=== PATIENT | female | born 1955 | race Caucasian/White ===

== ENCOUNTER 2016-12-12 16:23 | Emergency (ER) | payer OTHER ==
[2016-12-12 18:36] LABS: microscopic required? YES; urine erythrocyte NEGATIVE (NEGATIVE)
[2016-12-12 20:56] LABS: BASOPHIL % 0.1 % (0-2); PLATELET COUNT 171 x10^3mcL (130-400); RED CELL DISTRIBUTION WIDTH 13.4 % (11.5-14.5)
[2016-12-12 21:02] LABS: CALCIUM 9.7 mg/dL (8.5-10.1); CARBON DIOXIDE 25.8 mmol/L (21-32); POTASSIUM SERUM 3.8 mmol/L (3.5-5.1)
[2016-12-12 21:06] LABS: ALBUMIN 3.9 g/dL (3.4-5.0); BILIRUBIN TOTAL 0.4 mg/dL (0.20-1.00); TOTAL PROTEIN, SERUM 6.9 g/dL (6.4-8.2)
[2016-12-12 21:21] LABS: CK-MB < 0.5 ng/mL (0-3.6); CREATINE KINASE 17 U/L (26-192)
[2016-12-12 23:49] VITALS: BP 132/88
== END 2016-12-12 23:49 | disposition home or self-care (01) ==
LOC: ED 16:23
PROVIDERS: Emergency Medicine
DX: N39.0 Urinary tract infection, site not specified (principal); F99 Mental disorder, not otherwise specified; E78.00 Pure hypercholesterolemia, unspecified; Z00.8 Encounter for other general examination; Z13.9 Encounter for screening, unspecified; Z88.8 Allergy status to other drugs, medicaments and biological substances
CPT/HCPCS: 83880; J0696; Q0092

== ENCOUNTER 2016-12-29 17:12 | Emergency (ER) | payer OTHER ==
[~2016-12-29] VITALS: Ht 170.2 cm; Wt 68.0 kg
[2016-12-29 19:00] LABS: BASOPHIL % 0.3 % (0-2); CALCIUM 9.6 mg/dL (8.5-10.1); CARBON DIOXIDE 29.5 mmol/L (21-32); CHLORIDE SERUM 106 mmol/L (98-107); CREATININE SERUM 1.2 mg/dL (0.6-1.0); GFR1 48 mL/min; GLUCOSE SERUM 109 mg/dL (74-106); PLATELET COUNT 171 x10^3mcL (130-400); POTASSIUM SERUM 3.8 mmol/L (3.5-5.1); RED CELL DISTRIBUTION WIDTH 13.6 % (11.5-14.5); SODIUM SERUM 142 mmol/L (136-145)
[2016-12-29 19:05] LABS: ALBUMIN 3.9 g/dL (3.4-5.0); ALKALINE PHOSPHATASE 66 U/L (46-116); ALT/SGPT 28 U/L (14-59); AST/SGOT 17 U/L (15-37); BILIRUBIN TOTAL 0.3 mg/dL (0.20-1.00); TOTAL PROTEIN, SERUM 6.8 g/dL (6.4-8.2)
[2016-12-29 23:47] LABS: AMPHETAMINE QUAL UR NONE DETECTED (NEG <=1000)
[2016-12-30 11:58] VITALS: BP 137/99
== END 2016-12-30 12:30 ==
LOC: ED 17:12
PROVIDERS: Emergency Medicine
DX: F78 Other intellectual disabilities (principal); F99 Mental disorder, not otherwise specified; Z79.899 Other long term (current) drug therapy
CPT/HCPCS: 36415; G0480

== ENCOUNTER 2017-02-16 11:39 | Inpatient (IN) | payer OTHER ==
[~2017-02-16] VITALS: Ht 152.4 cm; Wt 57.0 kg
--- NOTE | 2017-02-16 12:03 | NUR ---
PT BIBA FOR MEDICAL CLEARANCE, PER MEDIC PT'S SISTER CALLED CCRT STS PT REFUSED TO TAKE MEDICATION AND SHOWER, AND EAT, DRINK WATER OR USE BATHROOM. PLACED PT ON CM, VSS. PT A/O X4. PT GIVEN CALL LIGHT. AWAITING DR SINGH. PT'S BELONGINGS TAKEN OUT OF HER ROOM.
--- NOTE | 2017-02-16 12:17 | NUR ---
PXRAY DONE AT BEDSIDE
[2017-02-16 12:49] LABS: BASOPHIL % 0.1 % (0-2); PLATELET COUNT 186 x10^3mcL (130-400); RED CELL DISTRIBUTION WIDTH 13.5 % (11.5-14.5)
[2017-02-16 12:50] LABS: CALCIUM 9.6 mg/dL (8.5-10.1); CARBON DIOXIDE 24.8 mmol/L (21-32); CHLORIDE SERUM 106 mmol/L (98-107); CREATININE SERUM 0.9 mg/dL (0.6-1.0); GFR1 > 60 mL/min; GLUCOSE SERUM 96 mg/dL (74-106); POTASSIUM SERUM 3.7 mmol/L (3.5-5.1); SODIUM SERUM 143 mmol/L (136-145)
[2017-02-16 13:03] LABS: ALKALINE PHOSPHATASE 64 U/L (46-116); ALT/SGPT 38 U/L (14-59); AMYLASE 37 U/L (25-115); AST/SGOT 27 U/L (15-37); BILIRUBIN TOTAL 0.5 mg/dL (0.20-1.00); CHOLESTEROL 154 mg/dL (<200); HDL CHOLESTEROL 64 mg/dL (40-60); LIPASE 92 IU/L (73-393); MAGNESIUM 1.7 mg/dL (1.8-2.4); T4(THYROXINE) 6.5 ug/dL (4.7-13.3); TOTAL PROTEIN, SERUM 7.1 g/dL (6.4-8.2)
--- NOTE | 2017-02-16 13:19 | NUR ---
CONTINUES TO MAKE PENTECOSTAL STATEMENTS INCLUDING THINKING RN IS KRISH. ABLE TO TOLERATE IV WITHOUR VERBAL OR PHYSICAL OUTBURST OR RESISTING INTERVENTION. BOLUS STARTED, REMAINS ON MONOTOR.
[2017-02-16 13:56] LABS: UA SPECIFIC GRAVITY >=1.030 (1.005-1.035); microscopic required? YES; urine erythrocyte NEGATIVE (NEGATIVE)
--- NOTE | 2017-02-16 13:59 | NUR ---
PT RESTING COMFORTABLY ON KWAKU JOHNS.
[2017-02-16 14:08] LABS: AMPHETAMINE QUAL UR NONE DETECTED (NEG <=1000)
--- NOTE | 2017-02-16 14:09 | NUR ---
SPOKE TO JACINTO,STS SHE IS CRIPPLED. PT HAD BLEEDING ULCER IN DECEMBER 2016, SUCRALFATE 10 MG BID ONE HOUR BEFORE MEALS,FENOFIBRATE 134 MG OD, VIT B12 OD, QUETIAPINE [id number] MG BID (ANXIETY), VIT D3 5,000 OD,PRAVASTATIN 10 MG OD, QUETIAPINE FUMARATE(SEROQUEL) 300 MG 2 TABS AT NIGHT, TEMAZEPAM 22.5 MG AT HS PRN JACINTO NO [phone]
--- NOTE | 2017-02-16 16:29 | NUR ---
CALLED JACINTO HORNE- [phone], SHE SAID PT HAD BREAKFAST AROUND 9AM , DONUT AND A CUP OF WATER. SPOKE TO KEELEY WU, STS THEY WANT TO KNOW IF PT HAS EATEN ANYTHING IN THE LAST [address] TREVIZO NOTIFIED. WILL CONTINUE TO MONITOR PT
[2017-02-16] MEDS ORDERED: FENOFIBRATE MI134 MG PO ×2 (17:40→17:41)
[2017-02-16] MEDS ORDERED: CARAFATE1 GM PO (17:41)
[2017-02-16] MEDS ORDERED: SEROQUEL25 MG PO (17:42)
[2017-02-16] MEDS ORDERED: PRAVASTATIN SOD10 M1 PO (17:42)
[2017-02-16] MEDS ORDERED: SEROQUEL300 MG PO (17:43)
[2017-02-16] MEDS ORDERED: RESTORIL15 MG (17:44)
--- NOTE | 2017-02-16 17:49 | NUR ---
MRSA SPECIMEN TAKEN AND SENT TO THE LAB
--- NOTE | 2017-02-16 18:29 | NUR ---
REPORT GIVEN TO KIAN
--- NOTE | 2017-02-16 18:30 | NUR ---
REC'D PT FROM ER VIA ALONSO. PT IS ON 5150 HOLD FOR GRAVELY DISABLED. HX OF SCHIZOPHRENIA. ALERT TO SELF. TELE #44 SR. DENIES PAIN OR DISCOMFORT. LUNG SOUNDS CLEAR. NO SOB NOTED. IV NOTED TO RAC. INTACT AND PATENT. BED IN LOWEST POSITION. CALL LIGHT WITHIN REACH. SITTER AT BEDSIDE. WILL ENDORSE TO PRIMARY RN.
[2017-02-16 19:03] VITALS: BP 146/92
--- NOTE | 2017-02-16 20:27 | NUR ---
AWAKE AND RESPONSIVE TO STIMULI. SKIN WARM AND DRY TO TOUCH. RESPIRATIONE VENA ND UNLABORED. NO S/S OF PAIN/DISCOMFORT. 1:1 SITTER AT BEDSIDE , GRAVELY DISABLED ON 5150. WILL CONTINUE TO MONITOR.
[2017-02-16 20:42] VITALS: BP 135/87
--- NOTE | 2017-02-17 02:50 | NUR ---
PT APPARENTLY ANXIOUS AND RESTLESS AT THIS TIME. DR GALLARDO MADE AWARE WITH NEW ORDER AND CARRIED OUT. ATIVEN 1MG PO ORDERED AND WELL TOLERATED. STARTED ON ROCEPHIN IGM IVPB FOR MANAGEMENT OF UTI ORDERED. WILL CONTINUE TO MONITOR.
[2017-02-17 06:37] VITALS: BP 133/92
[2017-02-17 06:49] LABS: CHOLESTEROL/HDL RATIO 2.6
--- NOTE | 2017-02-17 06:58 | NUR ---
STILL WITH ON AND OFF ANXIETY AND RESTLESSNESS.CONTINUE TO DO FREQUENT VISUAL CHECKS FOR SAFETY. KEPT CLEAN AND DRY. NO ADVERSE REACTION NOTED FROM ATB THERAPY. ALL NEEDS ATTENDED.
--- NOTE | 2017-02-17 08:09 | NUR ---
PT RECEIVED DURING CHANGE OF SHIFT A/OX1, ORIENTED TO SELF, TELE 44, NSR, PULSES PRESENT, NO EDEMA NOTED, LUNGS CTA ON RA, BREATHING EVEN AND UNLABORED, REPORTS PT REFUSED TO EAT, BOWEL SOUNDS ACTIVE, ABLE TO VOID, AMBULATORY, SKIN WARM DRY INTACT, NO INDICATION OF PAIN, IV TO RAC INFUSING NS, IV WNL, WITHDRAWN, ANSWERS "I DON'T WANT TO TALK ABOUT IT", CALL LIGHT WITHIN REACH, FLOOR COVERINGS INSTALLER AT BEDSIDE, CALL LIGHT WITHIN REACH, WILL CONTINUE TO MONITOR.
--- NOTE | 2017-02-17 08:27 | NUR ---
DR. FRANKEL AND RESIDENTS MAKING ROUNDS, PLAN OF CARE DISCUSSED.
--- NOTE | 2017-02-17 09:06 | NUR ---
PT DENIES SOB, DENIES PAIN, MEDS GIVEN, PT REPEATING "ARE YOU GOING TO GIVE ME MEDICATIONS.", CALL LIGHT WITHIN REACH, ASSISTANT IMPORT MANAGER AT BEDSIDE, WILL CONTINUE TO MONITOR.
--- NOTE | 2017-02-17 10:03 | NUR ---
PT ASLEEP, NO INDICATION OF PAIN, BREATHING EVEN AND UNLABORED, CALL LIGHT WITHIN REACH, SAMPLE PATTERNMAKER AT BEDSIDE, CALL LIGHT WITHIN REACH, WILL CONTINUE TO MONITOR.
--- NOTE | 2017-02-17 11:12 | NUR ---
PT ASLEEP BUT AROUSABLE, BREATHING EVEN AND UNLABORED, NO INDICATION OF PAIN, HOST/HOSTESS GROUND AT BEDSIDE, CALL LIGHT WITHIN REACH, WILL CONTINUE TO MONITOR.
--- NOTE | 2017-02-17 12:08 | NUR ---
PT ASLEEP, NO INDICATION OF PAIN, BREATHING EVEN AND UNLABORED, CALL LIGHT WITHIN REACH, WILL CONTINUE TO MONITOR.
[2017-02-17 12:40] VITALS: BP 121/89
--- NOTE | 2017-02-17 13:03 | NUR ---
PT REFUSING TO EAT, ENCOURAGED TO EAT BY RN AND OBSTETRICAL ANESTHESIOLOGIST, STATES "GOD TOLD ME NOT TO", CALL LIGHT WITHIN REACH, OBSTETRICAL ANESTHESIOLOGIST AT BEDSIDE, WILL CONTINUE TO MONITOR.
--- NOTE | 2017-02-17 13:55 | NUR ---
PT RESTING, NO INDICATION OF PAIN, BREATHING EVEN AND UNLABORED, BALE SEWER REPORTS PT DRANK ABOUT HALF OF THE BOOST WHEN ENCOURAGED BY DIETITION, CALL LIGHT WITHIN REACH, BALE SEWER AT BEDSIDE, WILL CONTINUE TO MONITOR.
--- NOTE | 2017-02-17 14:10 | NUR ---
PT RESTING IN BED, BREATHING EVEN AND UNLABORED, CALL LIGHT WITHIN REACH, WILL CONTINUE TO MONITOR.
--- NOTE | 2017-02-17 15:25 | NUR ---
PT RESTING IN BED, NO INDICATION OF PAIN, BREATHING EVEN AND UNLABORED, CALL LIGHT WITHIN REACH, HSE ADVISOR AT BEDSIDE, HSE ADVISOR STATED PT DRANK MORE OF THE BOOST.
--- NOTE | 2017-02-17 16:16 | NUR ---
Initial Nutrition Assessment Dx: Gravely Disabled 5150 PMHx: Schizophrenia, HLD PSHx: None Labs: BG 96, Mg 1.7L, A1C 6 Meds: Provachol, Tricor, NS IV, Carafate, Colace, Lactinex, Zofran, Diet: Low Sodium PO Intake: (02/17) B: pt refused, L: pt refused Ht: 60in Wt: 126lb BMI: 24.6kg/m2 (Normal) IBW: 100lb %IBW: 126% UBW: unable to obtain Age: 62 y/o F Food Allergies: None Skin: Intact. Brandon 19 Edema: None GI: Bowel sounds active. Last BM-none since admission (02/16) Nursing Trigger: Appears underweight/malnourished Pt admitted with metabolic encephalopathy secondary to UTI, pt lives with sister, pt had not taken medications and has psych evaluation pending with Dr. Ignacio per H&P notes. Per systems assessment (02/16) pt has a history of schizophrenia, alert to self only, pt is confused, and not eating, has COUNTER TACKER by bedside. video production intern visited pt who was lying in bed, alert but with altered mental status, claiming she wanted to see God, and selectively answering public health internship's and COUNTER TACKER's questions. COUNTER TACKER stated pt has refused to eat (02/17), pt took 2-3 sips of oral supplement Boost during public health internship's visit. Nursing Program Chair noticed moderate fat and muscle depletion in face and bilateral upper extremities, unable to conduct further visual assessment due to pt being covered with blankets, per physician note (02/16) general exam: pt well developed, well nourished, appears dehydrated. No family members present in room to participate in verbal interview with design intern. Problems with: N: No V: No D: No C: No Problems with: Chewing: Yes, missing upper and lower teeth, pt states dentures at home do not fit well, does not use them. Swallowing: No Current Appetite: Poor Recent wt change: Unable to obtain due to pt altered mental status. Vitamin/Supplement use: Unable to obtain due to pt answering selective questions. Diet at home: Per pt has oatmeal and mashed potato at home Physical activity: Unable to obtain due to pt altered mental status. Education: Not appropriate at this time. Estimated Nutritional Needs Based on: Actual body weight 126lb, 57kg Energy: 1425-1710kcal/d (kcal/kg 25-30 for Maintenance) Protein: 57-68g/d (1-1.2g/kg for Geriatric Maintenance) Fluid: 1425-1710ml/d (1ml/kcal) or per doctor Nutrition Diagnosis: Inadequate energy intake related to altered mental status as evidenced by pt refusing to eat x2 days. Intervention: 1. Recommend liberalize to regular diet, mechanical soft, chopped. No further restrictions warranted at this time to encourage PO intake. 2. Recommend Boost Plus TID with meals. Monitor/ Evaluate: Goal: PO intake and oral supplements to meet at least 75% of estimated needs Monitor: PO intake, Labs (TAG, Chol), GI function F/U in (3-5 days) as MODERATE risk (02/20-02/22)
--- NOTE | 2017-02-17 16:21 | NUR ---
PT RESTING, NO INDICATION OF PAIN, BREATHING EVEN AND UNLABORED, CALL LIGHT WITHIN REACH, NAILING MACHINE OPERATOR AUTOMATIC AT BEDSIDE, WILL CONTINUE TO MONITOR.
--- NOTE | 2017-02-17 17:08 | NUR ---
PT RESTING, NO INDICATION OF PAIN, BREATHING EVEN AND UNLABORED, CALL LIGHT WITHIN REACH, WILL CONTINUE TO MONITOR.
[2017-02-17 17:39] VITALS: BP 140/91
--- NOTE | 2017-02-17 18:18 | NUR ---
PT RESTING IN BED, NO INDICATION OF PAIN, BREATHING EVEN AND UNLABORED, TREASURY MANAGER STATES PT FINISHED 240ML OF WATER WITH A PIECE OF CAKE AND FINISHED THE BOOST, TREASURY MANAGER ALSO STATES PT HAS NOT GONE TO RESTROOM EVEN AFTER ENCOURAGEMENT TO DO SO, CALL LIGHT WITHIN REACH, TREASURY MANAGER AT BEDSIDE, WILL ENDORSE PT TO NEXT SHIFT.
--- NOTE | 2017-02-17 19:51 | NUR ---
PT CURRENTLY RESTING IN BED, NO ACUTE DISTRESS. A/O X1, ORIENTED TO SELF ONLY, CONFUSED. TELE #44 SHOWING SINUS TACHYCARDIA, DENIES CHEST PAIN. PULSES PALPABLE IN ALL EXTREMITIES, NO EDEMA NOTED. LUNG SOUNDS CTA BILATERALLY. BOWEL SOUNDS ACTIVE. PT ABLE TO VOID, HOWEVER REFUSING. AMBULATORY. SKIN INTACT. DENIES PAIN AT THIS TIME. IV PATENT AND INTACT. BED IN LOWEST POSITION, SIDE RAILS UP X2, CALL LIGHT WITHIN REACH. WILL CONTINUE TO MONITOR.
[2017-02-17 21:33] VITALS: BP 138/87
--- NOTE | 2017-02-18 08:00 | NUR ---
PATIENT AAOX1, REORIENTED TO TIME AND PLACE, NO DISTRESS NOTED, RESPIRATIONS EVEN AND UNLABORED, TELE # [address] AND DENIES CHEST PAIN, DENIES N/V/D. PATIENT EATING BREAKFAST AND ATE 25% OF BREAKFAST ENCOURAGE TO EAT MORE BUT PATINET REFUSED AND WILL CONTINUE TO ENCOURAGE TO EAT. CALL LIGHT AND BELONGINGS WITHIN REACH, FALL PRECAUTIONS IN PLACE, AND WILL CONTINUE TO MONITOR.
[2017-02-18 08:55] LABS: BASOPHIL % 0.3 % (0-2); CARBON DIOXIDE 25.6 mmol/L (21-32); CHLORIDE SERUM 107 mmol/L (98-107); CREATININE SERUM 0.6 mg/dL (0.6-1.0); GFR1 > 60 mL/min; MAGNESIUM 1.8 mg/dL (1.8-2.4); PHOSPHOROUS 2.8 mg/dL (2.5-4.9); PLATELET COUNT 171 x10^3mcL (130-400); POTASSIUM SERUM 3.7 mmol/L (3.5-5.1); RED CELL DISTRIBUTION WIDTH 13.5 % (11.5-14.5); SODIUM SERUM 140 mmol/L (136-145)
[2017-02-18 10:59] LABS: GLUCOSE SERUM 131 mg/dL (74-106)
[2017-02-18 11:00] VITALS: BP 144/89
--- NOTE | 2017-02-18 13:05 | NUR ---
BED BATH WAS GIVEN, BUT WHEN REPOSITIONING IV WAS D/C TO RAC WITH CANNULA INTACT, IV STARTED TO RFA 22G AND TOLERATED WELL, CALL LIGHT WITHIN REACH, FALL PRECAUTIONS IN PLACE, AND WILL CONTINUE TO MONITOR.
[2017-02-18 14:00] VITALS: BP 135/87
--- NOTE | 2017-02-18 17:00 | NUR ---
ASSISTED PATIENT OUT OF BED TO RESTROOM, PATIENT AMBULATED TO RESTROOM WITH STEADY GAIT, AND VOIDED, NO DISTRESS NOTED, RESPIRATIONS EVEN AND UNLABORED, PATIENT BACK IN BED AND WILL CONTINUE TO MONITOR.
[2017-02-18 17:11] VITALS: BP 139/93
--- NOTE | 2017-02-18 17:58 | NUR ---
AT BEDSIDE ASSESSING PATIENT WILL CONTINUE TO MONITOR.
--- NOTE | 2017-02-18 18:10 | NUR ---
PATIENT ATE 75% OF DINNER AND WILL CONTINUE TO MONITOR.
--- NOTE | 2017-02-18 18:49 | NUR ---
PATIENT SITTING UP IN BED AAOX1, REORIENTED TO TIME AND PLACE, NO DISTRESS NOTED, RESPIRAITONS EVEN AND UNLABORED, IV TO RFA CDI AND INFUSING NS AT 100ML/HR WITH NO S/S OF INFILTRATION, CALL LIGHT AND BELONGINGS WITHIN REACH, FALL PRECAUTIONS IN PLACE, AND WILL ENDORSE TO NIGHT NURSE.
--- NOTE | 2017-02-18 20:01 | NUR ---
PT CURRENTLY RESTING IN BED, NO ACUTE DISTRESS. A/O X1, CONFUSED, HX OF SCHIZOPHRENIA. TELE # 44 SHOWING SINUS RHYTHM, DENIES CHEST PAIN. PULSES PALPABLE IN ALL EXTREMITIES, NO EDEMA NOTED. LUNG SOUNDS CTA BILATERALLY. BOWEL SOUNDS ACTIVE. VOIDING WELL. MILD GENERALIZED WEAKNESS NOTED. SKIN INTACT. DENIES PAIN AT THIS TIME. IV PATENT AND INTACT. BED IN LOWEST POSITION, SIDE RAILS UP X2, SCDS IN PLACE, CALL LIGHT WITHIN REACH. WILL CONTINUE TO MONITOR.
[2017-02-18 21:12] VITALS: BP 140/83
--- NOTE | 2017-02-19 01:30 | NUR ---
PT CURRENTLY RESTING IN BED, NO ACUTE DISTRESS. WILL CONTINUE TO MONITOR.
--- NOTE | 2017-02-19 05:54 | NUR ---
PT PULLED OUT IV IN RFA, NEW IV STARTED IN LFA. PT TOLERATED PROCEDURE WELL. WILL CONTINUE TO MONITOR.
--- NOTE | 2017-02-19 05:56 | NUR ---
PT SLEPT PERIODICALLY THROUGHOUT NIGHT, NO ACUTE DISTRESS. ALL NEEDS MET AND ATTENDED TO. NO SIGNIFICANT CHANGES. IV PATENT AND INTACT. BED IN LOWEST POSITION, SIDE RAILS UP X2, SCDS IN PLACE, CALL LIGHT WITHIN REACH. WILL ENDORSE CARE TO ONCOMING NURSE.
[2017-02-19 06:06] LABS: BASOPHIL % 0.2 % (0-2); PLATELET COUNT 171 x10^3mcL (130-400)
[2017-02-19 06:26] LABS: CARBON DIOXIDE 22.2 mmol/L (21-32); CHLORIDE SERUM 108 mmol/L (98-107); CREATININE SERUM 0.7 mg/dL (0.6-1.0); GFR1 > 60 mL/min; GLUCOSE SERUM 137 mg/dL (74-106); MAGNESIUM 1.6 mg/dL (1.8-2.4); PHOSPHOROUS 2.7 mg/dL (2.5-4.9); POTASSIUM SERUM 3.5 mmol/L (3.5-5.1); SODIUM SERUM 139 mmol/L (136-145)
--- NOTE | 2017-02-19 07:36 | NUR ---
RECEIVED PT LAYING IN BED. NO APPARENT SIGNS OF ACUTE DISTRESS NOTED AT THIS TIME. DENIES PAIN. PT APPEARS TO HAVE FLAT AFFECT. VERY MONOTONE WITH RESPONSE, WITH BLANK STARE. SITTER AT BEDSIDE. CALL LIGHT WITHIN REACH. ENVIRONMENTAL SAFETY CHECK OF ROOM DONE. BED IN LOWEST POSITION. IV TO LFA INFUSING WELL WILL CONTINUE TO MONITOR FOR SAFETY
[2017-02-19 10:08] VITALS: BP 138/93
--- NOTE | 2017-02-19 11:14 | NUR ---
PT RTIS, RELIGIOUSLY PREOCCUPIED, STATING THAT GOD WON'T FORGIVE HER IF SHE TAKES MEDICATION OR IF SHE EATS. REORIENTED PT TO PERSON PLACE TIME AND SITUATION. REQUESTED CAITLIN TO TALK TO PT. CURRENTLY AT BEDSIDE. SPOKE TO PT'S SISTER ON THE PHONE. PROVIDED PT WITH PERICARE AND BED BATH BECAUSE SHE IS MALODOROUS. RETRIEVED STRONGER JAMES FROM EDUCATION DEPT. SITTER AT BEDSIDE. CALL LIGHT WITHIN REACH. ENVIRONMENTAL CHECK OF ROOM PERFORMED. WILL CONTINUE TO MONITOR
--- NOTE | 2017-02-19 11:56 | NUR ---
PT APPEARS VERY AGGITATED AND ANXIOUS, REPEATING SELF AND YELLING "GOD WON'T FORGIVE ME IF YOU BRING THE CAT" OVER AND OVER. CAUSING ROOMMATE DISTRESS AND ANXIETY. SPOKE TO DR. SIM. WILL LOOK INTO POSSIBLE STAT PRN. WILL CONTINUE TO MONITOR
--- NOTE | 2017-02-19 12:03 | NUR ---
ATIVAN PO PRN ORDERED AND ADMINISTERED. SITTER AT BED SIDE. WILL CONTINUE TO MONITOR
--- NOTE | 2017-02-19 13:35 | NUR ---
PT APPEARS LESS ANXIOUS AND AGITATED. AT TIMES STILL REPEATING PHRASES IN REGARDS TO GOD AND CATS. CONTINUE TO REORIENT PT TO PERSON PLACE TIME AND SITUATION. SITTER AT BEDSIDE. WILL CONTINUE TO MONITOR
[2017-02-19 13:57] VITALS: BP 131/96
--- NOTE | 2017-02-19 23:00 | NUR ---
PT PULLED OUT IV ACCESS AT THE LFA WITH SLIGHT BLEEDING NOTED. PRESSURE DRESSING APPLIED. NEW IV ACCESS STARTED AT THE LFA USING G#22 WITH GOOD BLOOD FLOW RETURN ON FIRST ATTEMPT . PATIENT TOLERATED PROCEDURE WELL.
--- NOTE | 2017-02-20 00:22 | NUR ---
PT VERY ANXIOUS, ATIVAN 1MG PO PRN MEDICATION. TURNED AND REPOSITIONED FOR COMFORT. ORAL FLUIDS OFFERED AND WELL TOLERATED.
--- NOTE | 2017-02-20 01:37 | NUR ---
PATIENT STILL VERY ANXIOUS, ATIVAN NOT EFFECTIVE, PT C/O SEVERE GENERALIZED BODY PAIN/THROBBIBG ON SCALE 8/10, MORPHINE 2MG GIVEN IVP PRN MEDICATION. WILL CONTINUE TO MONITOR.
--- NOTE | 2017-02-20 04:27 | NUR ---
PT CLAIMED PAIN MEDICATION IS NOT A TOTAL RELIEF, PAIN LEVEL AT THIS TIME 5/10, OFFERED PAIN MEDICATION FOR MODERATE PAIN. BUT REFUSED. WILL CONTINUE TO MONITOR.
[2017-02-20 04:38] VITALS: BP 116/79
--- NOTE | 2017-02-20 06:27 | NUR ---
NO ADVERSE REACTIOBN NOTED FROMA TB THERAPY. ASSISTED TO BATHROOM FOR BLADDER FUCNTION. GOOD PERICARE RENDERED. KEPT CLEAN AND DRY. ALL NEEDS ATTENDED.
--- NOTE | 2017-02-20 07:28 | NUR ---
RECEIVED PATIENT ALERT AWAKE ORIENTED 1, NO COMPLAINT OF PAIN OR SOB, IV SITE RIGHT ARM WRAPPED AND INTACT, SKIN INTACT, SITTER AT BEDSIDE PATIENT LYING SUPINE BED IN LOW POSITION CALL LIGHT IN APLCE SIDE RAILS UP
[2017-02-20 08:34] VITALS: BP 137/92
[2017-02-20 10:34] LABS: BASOPHIL % 0.3 % (0-2); PLATELET COUNT 164 x10^3mcL (130-400); RED CELL DISTRIBUTION WIDTH 13.6 % (11.5-14.5)
[2017-02-20 10:55] LABS: CALCIUM 9.1 mg/dL (8.5-10.1); CARBON DIOXIDE 25.6 mmol/L (21-32); CHLORIDE SERUM 111 mmol/L (98-107); CREATININE SERUM 0.7 mg/dL (0.6-1.0); GFR1 > 60 mL/min; GLUCOSE SERUM 130 mg/dL (74-106); MAGNESIUM 1.5 mg/dL (1.8-2.4); PHOSPHOROUS 3.7 mg/dL (2.5-4.9); POTASSIUM SERUM 3.8 mmol/L (3.5-5.1); SODIUM SERUM 144 mmol/L (136-145)
--- NOTE | 2017-02-20 11:17 | NUR ---
PATIENT ALERT AWAKE SINGING CONFUSED NO SIGN OF DISTRESS OR SOB NO PAIN VERBALIZED, RECEIVING ULTRASOUND BILATERAL LOWER ETREMITIES, PATIENT LYING IN BED SUPINE BED IN LOW POSITION CALL LIGHT IN PALCE SIDE RAILS UP
--- NOTE | 2017-02-20 11:28 | NUR ---
SPOKE WITH DR OROZCO ABOUT MG 1.5 STATED SHE WILL ORDER MG DEEDEE
[2017-02-20 13:21] VITALS: BP 139/93
--- NOTE | 2017-02-20 16:10 | NUR ---
PATIENT ALERT AWAKE AMBULATED ENCINO WITH SITTER NO COMPLICATIONS SITTING AT BEDSIDE READING BIBLE WITH SITTER AT BEDSIDE, NO COMPLAINT OF APIN RO SOB, BS 110 NO COVERAGE, IV FLUID RUNNING SITTER AT BEDSIDE BED IN LOW POSITION CALL LIGHT IN PLACE SIDE RAILS UP
--- NOTE | 2017-02-20 16:44 | NUR ---
PT ON BED, AWAKE, ALERT, AND ORIENTED X2. HAS NO COMPLAINT OF PAIN, SOB, OR DIZZINESS. RESPONDS WELL TO QUESTION AND ANSWER. SIDE RAILS UP, CALL LIGHT WITHIN REACH, WILL CONTINUE TO MONITOR
[2017-02-20 18:20] VITALS: BP 136/92
--- NOTE | 2017-02-20 20:04 | NUR ---
AWAKE BUT CONFUSED AND DISORIENTED. VERY AGITATED AND RESTLESS AT THE START OF THE SHIFT. ALLOWED PATIENT TO VERBALIZE FEELINGS. SITTER AT BEDSIDE. IVF NS INFUSING WELL VIA PERIPHERAL LINE AT THE RIGHT FOREARM TOLERATING WELL. WILL CONTINUE TO MONITOR.
[2017-02-20 21:00] VITALS: BP 128/84
--- NOTE | 2017-02-21 00:10 | NUR ---
ASSITED TO BVATHROOM FOR BLADDER FUNCTION. GOOD PERICARE RENDERED. KEPT CLEAN AND DRY.
--- NOTE | 2017-02-21 03:15 | NUR ---
C/O SEVERE BACK PAIN, MORPHINE 2MG IVP PRN MEDICATION. MORPHINE 2MG IVP PRN MEDICATION. WILL CONTINUE TO MONITOR.
--- NOTE | 2017-02-21 05:32 | NUR ---
CONTINUES LARON TB IVPB FOR MAAGEMENT OF UTI WITHOUT ADVERSE REACTION NOTED. TOELRATED ORAL FLUIDS, NO S/S OF ASPIRATION NOTED. KEPT CLEAN AND DRY. ALL NEEDS ATTENDED.
[2017-02-21 05:55] VITALS: BP 131/81
[2017-02-21 06:10] LABS: CALCIUM 8.9 mg/dL (8.5-10.1); CARBON DIOXIDE 20.7 mmol/L (21-32); CHLORIDE SERUM 110 mmol/L (98-107); CREATININE SERUM 0.6 mg/dL (0.6-1.0); GFR1 > 60 mL/min; GLUCOSE SERUM 106 mg/dL (74-106); MAGNESIUM 2.1 mg/dL (1.8-2.4); SODIUM SERUM 141 mmol/L (136-145)
[2017-02-21 07:03] LABS: BASOPHIL % 0.1 % (0-2); PLATELET COUNT 159 x10^3mcL (130-400); RED CELL DISTRIBUTION WIDTH 13.9 % (11.5-14.5)
--- NOTE | 2017-02-21 09:00 | NUR ---
PT ON BED, AWAKE, ALERT, AND ORIENTED X2. HAS NO COMPLAINT OF PAIN, SOB, OR DIZZINESS. RESPONDS WELL TO QUESTION AND ANSWER. CLEAR EDVIN LUNG FIELD, SYMMETRICAL CHEST EXPANSION AND UNLABORED. SIDE RAILS UP, CALL LIGHT WTIHIN REACH, WILL CONTINUE TO MONITOR
--- NOTE | 2017-02-21 14:02 | NUR ---
PT ON BED, AWAKE, ALERT, AND ORIENTED X2. PT IS READING HER BIBLE. NO FACIAL GRIMACE, NO DISTRESS NOTED
--- NOTE | 2017-02-21 18:08 | NUR ---
PT ON BED, AWAKE, ALERT, AND ORIENTED. HAS NO COMPLAINT OF PAIN, SOB, OR DIZZINESS. RESPONDS WELL TO QUESTION AND ANSWER. SIDE RAILS UP, CALL LIGHT WITHIN REACH, WILL CONTINUE TO MONITOR
[2017-02-21 18:15] VITALS: BP 134/90
--- NOTE | 2017-02-21 19:55 | NUR ---
AWAKE IN BED , APPARENTLY APPREHENSIVE AND WITHDRAWN. RESPIRATIONE LENO AND OUNLABORED. DENIES ANY PAIN/DIOSCOMFORT AT THIS TIME. PLACED CALL LIGHT WITHIN REACH, INSTRUCTED TO CALL FOR ANY ASSSITANCE BEEDED. WILL CONTINUE TO MONITOR.
--- NOTE | 2017-02-22 00:01 | NUR ---
CALM AT THIS TIME. DENIES ANY PAIN/DISCOMFORT. ORAL FLUIDS WELL TOLERATED. NO S/S OF ASPIRATION. WILL CONTINUE TO MONITOR.
--- NOTE | 2017-02-22 05:30 | NUR ---
ASSSITED TO BATHROOM FOR PERSONAL NEEDS. GOOD PERICARE RENDERED. KEPT CLEAN AND RY. BLOOD AUGAR TAKEN 101MG/DL. NO S/S OF GALYCEMIC REACTION. TOELRATED ORAL FLUIDS. NO S/S OF ASPIRATION NOTED.
[2017-02-22 06:35] LABS: CALCIUM 9.5 mg/dL (8.5-10.1); CHLORIDE SERUM 109 mmol/L (98-107); CREATININE SERUM 0.6 mg/dL (0.6-1.0); GFR1 > 60 mL/min; GLUCOSE SERUM 104 mg/dL (74-106); POTASSIUM SERUM 3.9 mmol/L (3.5-5.1); SODIUM SERUM 140 mmol/L (136-145)
[2017-02-22 06:36] LABS: BASOPHIL % 0.3 % (0-2); PLATELET COUNT 186 x10^3mcL (130-400); RED CELL DISTRIBUTION WIDTH 13.6 % (11.5-14.5)
--- NOTE | 2017-02-22 07:35 | NUR ---
RECEIVED PT SITTING UP IN BED AWAKE AND ALERT, READING THE BIBLE. DENIES PAIN AT THIS TIME. PLEASANT WHEN ENGAGED. IV TO RFA APPEARS PATENT AND INFUSING WELLTO KVO. RESPIRATIONS EVEN AND UNLABORED. CALL LIGHT WITHIN REACH. SITTER AT BEDSIDE. WILL CONTINUE TO MONITOR FOR SAFETY
[2017-02-22 08:16] VITALS: BP 138/91
[2017-02-22 08:47] VITALS: BP 133/96
--- NOTE | 2017-02-22 10:36 | NUR ---
PT RESTING CALM AND QUIETLY SITTING UP IN BED, READING THE BIBLE. PT WAS OFFERED GLUCOSE CONTROL DIETARY SUPPLEMENT SHAKE. PT DRANK IT ALL. COMPLAINT WITH MEDICATION.
--- NOTE | 2017-02-22 11:19 | NUR ---
Follow Up Nutrition Assessment Dx: Gravely Disabled, 5150 PMHx: Schizophrenia, HLD Labs: BG 104; (02/16) A1C 6 Meds: Colace, D50, humulin R, lactinex, NS IV, vitamin B12, vitamin D, zofran Current Diet Order: CCHO-60 gm PO Intakes: (02/20) B: 0% (Refused), L: 0% (Refused), D: 85%; (02/21) B: 0% (100% Boost), L: 75%, D: 75% Weights: (02/17) 126 lb, 57 kg Skin: Intact. Brandon 19. Edema: None GI: Bowel sounds active. Last BM 02/21. Current Appetite: Fair to Good (Fluctuates) Problem with: N: None. V: None. D: None. C: None. Problems with: Chewing: Yes. Missing upper and lower teeth, dentures at home, does not fit well, does not use them. Per doctor's progress note 02/21, no acute events overnight, no evidence of arterial stenosis and DVT; Pt with metabolic encephalopathy secondary to UTI, 6-10 WBC with moderate bacteria, history of schizophrenia, on 5150 for grave disability, pending psych facility placement. Pt appeared confused, awake during RD visit. Boost Glucose Control x2 (Vanilla, [place]) at bedside, untouched. Sitter at bedside. Sitter reported that pt ate well this morning, only eats foods on the plate, nothing else outside of the plate. Sitter also stated that pt likes Boost Chocolate flavor only and will drink the Boost if given. Sitter also stated that pt does not have teeth, will fair better with softer textured foods. Estimated Nutritional Needs Based on Actual BW 126 lb, 57 kg. Energy: 7833-3314 kcal/day (25-30 kcal/kg for Maintenance) Protein: 57-68 gm/day (1-1.2 gm/kg for Maintenance) Fluids: 5631-1670 ml/day (1ml/kcal for Maintenance) or per doctor Nutrition Diagnosis 1. Inadequate energy intake related to altered mental status as evidenced by pt refusing to eat x2 days -- *Resolved 2. Difficulty chewing related to missing dentition as evidenced by pt with no teeth, dentures do not fit well Intervention 1. Recommend Mechanical, Soft Chopped diet. No restrictions warranted due to pt not diabetic, PO intakes fluctuates. 2. Recommend Boost Plus BID (Chocolate) (720 kcal, 28 gm protein) to aid in fluctuating PO intakes. 3. Consider D/C Humulin R. Noted pt is not diabetic, A1C 6%. Monitor/ Evaluate Previous Goal: PO intakes and oral supplements to meet at least 75% of estimated needs - Met partially Goal: PO intakes to meet >75% of estimated needs Monitor: PO intakes, labs, GI function F/U in 7 days as LOW risk (03/01)
[2017-02-22 13:41] VITALS: BP 153/89
--- NOTE | 2017-02-22 14:09 | NUR ---
PT RESTING IN BED READING HER BIBLE. DENIES PAIN OR DISCOMFORT AT THIS TIME. DID NOT EAT LUNCH, BUT AT THE GLUCOSE CONTROL SUPPLEMENT. WILL CONTINUE TO ENCOURAGE PT TO EAT AND WILL OFFER ADDITIONAL SNACK PERIODICALLY THROUGH THE DAY IN BETWEEN MEALS. IV INFUSING WELL. CALL LIGHT WITHIN REACH. WILL CONTINUE TO MONITOR
--- NOTE | 2017-02-22 14:20 | NUR ---
P.T. NOTES RECEVIED P.T. MEGAN SALTER REVIEWED, SITTER PRESENT AT BEDSIDE. PT FOUND AWAKE, IN LONG SITTING POSITION READING HER BIBLE. PT WAS RESPONISVE TO P.T. BUT WHEN ASKED IF SHE WANTS TO PARTICIPATE WITH P.T. PT RESPONDED "NOT NOW, I WANT TO READ MY BIBLE." PER SITTER PT WALKS TO THE BATHROOM WITH NO ASSIST ONLY SUPERVISION. WILL ATTEMPT TO SEE PT AT A LATER TIME. BASED ON SCREENING PT IS MORE LIMTIED BY HER COGNIION VERSUS MUSCULOSKELETAL IMPAIRMENT. PVE X1
[2017-02-22 16:42] VITALS: BP 129/84
--- NOTE | 2017-02-22 18:06 | NUR ---
PT SITTING UP IN BED. PT DID NOT LIKE HER DINNER, STATING IT WAS TOO SPICY. ANOTHER TRAY WAS ORDERED. PT DID DRINK GLUCOSE CONTROL MILK SHAKE. SITTER AT BEDS SIDE TO ASSIST. CALL LIGHT WITHIN REACH. WILL CONTINUE TO MONITOR
--- NOTE | 2017-02-22 20:27 | NUR ---
RECEIVED PT IN BED AAOX2, PT DENY PAIN/DISCONFORT AT THE MOMENT , LUNG SOUNDS CTA , PIV TO RIGHT ARM INTACT INFUSING WELL , BED ALARM ON FOR SAFETY, WILL CON'T TO MONITOR AND ASSIST PT WITH CARE .
--- NOTE | 2017-02-22 20:30 | NUR ---
PATIENT'S PLAN OF CARE WAS DISCUSSED AND REVIEWED WITH LUNCHROOM MOTHER: PETEY BARCLAY I HAVE REVIEWED THE DATA COLLECTION BY LUNCHROOM MOTHER (NAME): PETEY BARCLAY ENTERED ON (DATE/TIME): 02/22/172026 I CONCUR WITH THE DATA AND ANY EXCEPTIONS OR COMMENTS ARE LISTED BELOW: AGREE WITH ASSESSMENTS.
[2017-02-22 21:54] VITALS: BP 136/97
--- NOTE | 2017-02-23 03:10 | NUR ---
PT;S IN BED WITH EYES CLOSED , PIV INTACT INFUSING WELL .
[2017-02-23 05:21] VITALS: BP 122/83
[2017-02-23 06:07] LABS: PLATELET COUNT 200 x10^3mcL (130-400); RED CELL DISTRIBUTION WIDTH 13.8 % (11.5-14.5)
[2017-02-23 06:18] LABS: CALCIUM 10.4 mg/dL (8.5-10.1); CHLORIDE SERUM 107 mmol/L (98-107); CREATININE SERUM 0.8 mg/dL (0.6-1.0); GFR1 > 60 mL/min; GLUCOSE SERUM 137 mg/dL (74-106); SODIUM SERUM 141 mmol/L (136-145)
[2017-02-23 06:34] LABS: BASOPHIL % 0 % (0-2)
--- NOTE | 2017-02-23 06:39 | NUR ---
NO CHANGES OF CONDITION NOTED , ALL DUE MEDS GIVEN NO REACTION NOTED, PT VOIDED X1 ON THIS SHIFT , PIV INTACT INFUSING WELL, BED TO THE LOWEST POSITION BED ALARM ON FOR SAFETY .
--- NOTE | 2017-02-23 07:30 | NUR ---
PATIENT IS SITTING UP IN BED EYES OPEN DOES RESPOND VERBALLY WHEN SHE IS ASKED QUESTIONS. ALERT AND ORIENTED, X 2. IVF INFUSING WELL TO RT F/A. BRP WITH ASSIST, GENERALIZED WEAKNESS NOTED. SCD'S IN PLACE. PATIENT APPEARS TO BE RELIGIOUSLY PREOCCUPIED. WILL CONTINUE TO MONITOR.
--- NOTE | 2017-02-23 10:20 | NUR ---
DR MAIER AND MEDICAL TEAM INTO SEE PATIENT AND DISCUSS PLAN OF CARE.
[2017-02-23 10:30] VITALS: BP 129/86
[2017-02-23 18:13] VITALS: BP 127/75
--- NOTE | 2017-02-23 18:14 | NUR ---
DR DUNLAP HAS BEEN INTO SEE PATIENT. PATIENT HAS BEEN CALM, REFUSES TO EAT, DRINK OR URINATE AND WASH UP UNLESS TOLD THAT,"KRISH WANTS HER TOO," AND THEN SHE HAS COOPERATED WITH CARE. PATIENT HAD ONE SMALL EPISODE OF EMESIS OF THE BOOST. DENIES ANY N/V. ASSISTED TO THE BATHROOM AND ALLOWED KEYING MACHINE OPERATOR TO WASH HER HAIR. BACK IN BED WITH HER BIBLE IN HER HANDS. PATIENT DID SPEAK TO HER SISTER ON THE PHONE. NO ACUTE DISTRESS NOTED. WILL ENDORSE TO [facility] NURSE.
[2017-02-23 18:30] VITALS: BP 136/92
--- NOTE | 2017-02-23 18:38 | NUR ---
I HAVE REVIEWED THE DATA COLLECTION BY SENIOR ELECTRONICS TECHNICIAN (NAME): MELINA SARAVIA ENTERED ON (DATE/TIME): 02/23/17 @[id number], [id number] I CONCUR WITH THE DATA AND ANY EXCEPTIONS OR COMMENTS ARE LISTED BELOW:
--- NOTE | 2017-02-23 19:05 | NUR ---
AOX1. MED SURG. LUNGS CLEAR AND UNLABORED ON RA, DENIES SOB. RADIAL AND PEDAL PULSES PALPABLE, NO EDEMA. BOWEL SOUNDS ACTIVE X 4 QUADRANTS. SKIN INTACT. DENIES PAIN. NS @ 10 ML/HR TO RIGHT FA, NO REDNESS OR SWELLING. PT IS CALM AND COOPERATIVE AT THIS TIME. BED IN LOW POSITION, CALL LIGHT IN REACH. INSTRUCTED TO CALL FOR ASSISTANCE.
[2017-02-23 21:42] VITALS: BP 112/74
--- NOTE | 2017-02-24 01:34 | NUR ---
RESTING WITH EYES CLOSED. AWAKENS EASILY TO VERBAL STIMULI. BREATHING EVEN AND UNLABORED. NO ACUTE DISTRESS NOTED. WILL CONTINUE TO MONITOR.
[2017-02-24 05:02] VITALS: BP 112/70
--- NOTE | 2017-02-24 06:03 | NUR ---
RESTED WELL THROUGHOUT SHIFT. BERTHA DE LOS SANTOS ATTEMPTED X2 TO ASSIST PT TO BATHROOM TO VOID, BOTH TIMES PT REFUSED. BLOOD SUGAR ALSO REFUSED THIS AM, DR. SIM AWARE. NO ACUTE CHANGES DURING SHIFT. NO ACUTE DISTRESS NOTED. WILL ENDORSE TO ONCOMING RN.
--- NOTE | 2017-02-24 07:10 | NUR ---
AWAKE AND ALERT, ABLE TO VERBALIZE NEEDS, SITTING UP IN BED, READING HER BIBLE, DENIES PAIN OR DISCOMFORT, UNDER NO APPARENT DISTRESS, REASSURED ABOUT CURRENT SITUATION, REALITY CHECK PROVIDED, CALL LIGHT WITHIN REACH, WILL CONTINUE TO PROVIDE CARE.
--- NOTE | 2017-02-24 09:25 | NUR ---
SITTING UP IN BED, ABLE TO TAKE ALL PO MEDS WITHOUT GI DISTRESS, CALM AND COOPERATIVE AT THIS TIME, CALL LIGHT WITHIN REACH.
--- NOTE | 2017-02-24 09:38 | NUR ---
ROUNDS WITH DR MAIER AND MEDICAL TEAM, UPDATED PT ON CURRENT POC.
[2017-02-24 09:53] VITALS: BP 137/79
--- NOTE | 2017-02-24 13:19 | NUR ---
PT AGREED TO EAT SOME OF HER LUNCH TRAY, ATE THE HAMBURGUER, BUT REFUSED ALL OTHER FOOD, APPEARS UNDER NO DISTRESS, CALL LIGHT WITHIN REACH, WILL CONTINUE TO PROVIDE CARE.
[2017-02-24 14:28] VITALS: BP 98/62
[2017-02-24 16:13] VITALS: BP 126/69
--- NOTE | 2017-02-24 18:23 | NUR ---
CYRUS LONG FROM [facility] PHONED REQUESTING RECORDS OF HOLD, RESULTS FROM HEAD CT, A BED IS AVAILABLE ONCE ALL DOCUMENTATION HAS BEEN FAXED, CYRUS'S PHONE , FAX .
--- NOTE | 2017-02-24 18:25 | NUR ---
PATIENT TAKEN DOWNSTAIRS FOR HEAD CT, PATIENT AGREED TO THE DX TEST, HAS REMAINED CALM THROUGHOUT SHIFT, REQUIRES CONSTANT CUEING AND ENCOURAGEMENT TO EAT AND TO USE THE RESTROOM, HAS ACCEPTED ALL MEDICATIONS WITHOUT GI DISTRESS, SISTER JACINTO HAS PHONED SEVERAL TIMES TO OBTAIN UPDATES ON HER CONDITION, NO OTHER SIGNIFIANT CHANGES NOTED, WILL ENDORSE CARE TO NIGHT NURSE.
--- NOTE | 2017-02-24 20:00 | NUR ---
PT. AWAKE, ALERT, ORIENTED TO SELF AND PLACE. FLAT AFFECT, DOES NOT ENGAGE IN CONVERSATION,DOES NOT RESPOND TO QUESTIONS ABOUT SUICIDAL IDIEATIONS. DR. MENDOZA CAME IN AND ASSESSED PT. CT SCAN OF THE HEAD IS PENDING. POSSIBLE TRANSFER TO [facility]. PT.'S FAMILY, GARY, CALLED TO BE UPDATED ABOUT PT. MADE AWARE THAT TRANSFER IS PENDING. IV SITE INTACT. NO EDEMA TO EXTREMITIES. PEDAL PULSES MDOERATE. BED LOW LAYING W/ ALARM ON.
--- NOTE | 2017-02-24 20:37 | NUR ---
DR. SIM MADE AWARE CT SCAN RESULTS AVAILABLE. SPOKE W/ INTAKE AT [facility]. [facility] SCAN AND ORDERS FROM DR. MCRAE BEING FAXED OVER. AWAITING CALL BACK FROM [facility] AT THIS TIME.
[2017-02-24 21:55] VITALS: BP 103/69
--- NOTE | 2017-02-24 22:09 | NUR ---
INITIAL FAX TO [facility] AT 2100 SENT. [facility] WAS CONTACTED FOR UPDATE ON THEIR DECISION ABOUT PENDING TRANSFER. DAGOBERTO, AT [facility], STATED THAT THEY DID NOT RECEIVE THE NEW ORDERS FROM THE DOCTOR, ONLT THE CT OF THE HEAD. ORDERS FROM THE DOCTOR WAS RE FAXED. AWAITING CALL BACK [facility].
--- NOTE | 2017-02-24 22:29 | NUR ---
SPOKE W/ DAGOBERTO FROM [facility], [facility] . DAGOBERTO STATED THAT HE RECEIVED DOCTORS ORDER AND THEY REVIEWED CT SCAN. HE STATED THAT THEIR DOCTOR HAS TO BE CALLED AT THIS TIME. HE ALSO STATED THAT THEY HAVE A PATIENT THERE AT [facility] THAT WAS SUPPOSE TO BE DISCHARGED, WHO IS OCCUPYING THE BED THAT OUR PATIENT SHOULD BE RECEIVING. STATED THAT THE PATIENT IS STILL THERE AT [facility] AND IF THAT PT. IS NOT DISCHARGED THEN OUR PATIENT HERE WILL NOT HAVE A ROOM. CHARGE NURSE MADE AWARE.
--- NOTE | 2017-02-24 22:40 | NUR ---
PT. RESTING QUIETLY IN BED. SITTING UP, READING BIBLE. BOOST OFFERED. PT. REFUSED AT THIS TIME. BED LOW LAYING W/ ALARM ON. CALL LIGHT WITHIN REACH. FREQUENT ROUNDS PLANNED.
--- NOTE | 2017-02-25 05:10 | NUR ---
NO FURTHER COMMUNICATION MADE THROUGHOUT NIGHT WITH JUSTIN BRIDGES. DR. SIM IN, AWARE OF SITUATION. PT.'S SISTER ALSO CALLED AND WAS MADE AWARE THAT TRANSFER ORDERS ARE NOT CONFIRMED THUS FAR.
[2017-02-25 05:34] VITALS: BP 95/71
--- NOTE | 2017-02-25 06:30 | NUR ---
PT. SLEPT WELL THROUGHOUT NIGHT, AWAKE AND CONTINUES TO READ HER BIBLE. FLAT AFFECT. FOLLOWING MOST COMMANDS, BUT SPEAKS AND ANSWERS ONLY WHEN SHE CHOOSES TO . IV SITE INTACT, CALL LIGHT WITHIN REACH. WILL ENDORSE PT. CARE TO INCOMING NURSE.
--- NOTE | 2017-02-25 07:00 | NUR ---
RESTING IN BED, AROUSABLE TO LIGHT NOISE, ABLE TO VERBALIZE NEEDS, FOLLOWS SIMPLE COMMANDS INTERMITENTLY, UNDER NO APPARENT DISTRESS, WILL ENCOURAGE ADEQUATE PO INTAKE, REORIENTED TO ROOM, CALL LIGHT AND CURRENT SITUATION, IV AT [facility], WILL CONTINUE TO PROVIDE CARE.
--- NOTE | 2017-02-25 08:40 | NUR ---
PT REQUESTED TO PICK AND CHOOSE WHICH MEDICATIONS SHE WOULD TAKE, NOT SURE WHAT METHOD SHE USED TO CHOOSE, SHE WAS ALSO WILLING TO EAT SOME OF HER BREAKFAST, ONCE THE INTERRACTION WAS DONE, SHE STATED "I DON'T LIKE THAT YOU KILLED MY DADDY, HE WAS A GOOD DADDY" PRIMARY RN REASSURED PATIENT AND PROVIDED REALITY CHECK, PATIENT APPEARED TO CALM DOWN AND STARTED READING THE BIBLE, CALL LIGHT WITHIN REACH, WILL CONTINUE TO PROVIDE CARE.
[2017-02-25 09:24] VITALS: BP 99/69
--- NOTE | 2017-02-25 10:25 | NUR ---
PHYSICAL THERAPY DAILY NOTES CO-SIGN All documentation done by the Microbiology Supervisor for 02/24/17 has been reviewed. I agree with the documentation. Reviewed/Co-Signed by: Javid Feliz PT Documentation Done by:JUNO NOBLE DRENCHER POC REVIEWED W/ DRENCHER; WILL BENEFIT W/ P.T. DURING ACUTE STAY, EMPHASIS ON FALL PREVENTION TECH, SAFE TASK SEQUENCING, HEP.
--- NOTE | 2017-02-25 12:46 | NUR ---
LATE ENTRY FOR 1045: BEDBATH AND HAIR WASH PROVIDED, TOLERATED WITHOUT DISTRESS. DECLINED PHYSICAL THERAPY. LATE ENTRY FOR 1225: AMBULATED WITH PHYSICAL THERAPY. REFUSED TO HAVE BG CHECK, RISKS AND BENEFITS EXPLAINED, PT IS UNDER NO APPARENT DISTRESS, WILL MONITOR CLOSELY FOR S&S OF HYPO/HYPERGLYCEMIA.
[2017-02-25 16:28] VITALS: BP 107/83
--- NOTE | 2017-02-25 16:32 | NUR ---
PHYSICAL THERAPY DAILY NOTES CO-SIGN All documentation done by the Grizzly Worker for 02/25/17 has been reviewed. I agree with the documentation. Reviewed/Co-Signed by: Javid Feliz PT Documentation Done by:JUNO NOBLE GREEN CHAIN OFFBEARER POC REVIEWED W/ GREEN CHAIN OFFBEARER.
--- NOTE | 2017-02-25 18:08 | NUR ---
PATIENT IS SITTING UP IN BED, EATING DINNER BY HERSELF.
--- NOTE | 2017-02-25 18:08 | NUR ---
GREAT IMPROVEMENT NOTED THROUGHOUT SHIFT, PT HAS TOLERATED TWO MEALS, BEDBATH, CHANGE OF BEDDING, NO EPISODES OF RESTLESSNESS NOTED, RESPONDS POSITIVELY TO ENCOURAGEMENT AND PRAISES AFTER EACH INTERVENTION THAT SHE ACTIVELY PARTICIPATES IN, AWAITING FOR TRANSFER TO [facility], NO OTHER SIGNIFICANT CHANGES NOTED, CARE WILL BE ENDORSED TO NIGHT NURSE.
--- NOTE | 2017-02-25 19:37 | NUR ---
PT. AWAKE, ALERT, ORIENTED TO SELF AND PLACE. DENIES HEADACHE OR DIZZINESS. BREATH SOUNDS CLEAR THROUGHOUT LUNG HO, RESP. EVEN, UNLABORED. NO SOB NOTED. NO EDEMA NOTED TO EXTREMITIES. PEDAL PULSES MODERATE. ABD. SOFT AND FLAT, BOWEL SOUNDS ACTIVE. IV SITE WNL.PT. W/ FLAT AFFECT AT TIMES. NOT ENGAGING IN CONVERSATION. FOLLOWING COMMANDS HOWEVER. CALL LIGHT WITHIN REACH. BED LOWING, ALARM ON. FREQUENT ROUNDS PLANNED.
[2017-02-25 21:53] VITALS: BP 118/74
--- NOTE | 2017-02-26 00:39 | NUR ---
PT. AWAKE, SITTING UP IN BED W/ BIBLE IN HAND. PT. ENCOURAGED TO TAKE A NAP, SLEEP. STATED THAT SHE IS NOT SLEEPY. PT. COOPERATIVE THUS FAR THROUGHOUT NIGHT. CALL LIGHT WITHIN REACH.
--- NOTE | 2017-02-26 02:49 | NUR ---
PT. SLEEPING AT THIS TIME. IVF INFUSING WELL. CALL LIGHT WITHIN REACH.
[2017-02-26 07:09] VITALS: BP 107/68
--- NOTE | 2017-02-26 07:50 | NUR ---
AWAKE ,ALERT W/ PERIODS OF FORGETFULNESS,APPEARS DEPRESSED ,REFUSED TO EAT NEEDS MORE ENCOURAGEMENT TO EAT. CONT. IV FLUIDS ORDERED. ABLE TO AMBULATE IN THE BATHROOM W/ ASSIST. AND VOIDING WELL.DENIES ANY PAIN. NO ACUTE DISTRESS NOTED. WILL CONT. PLAN OF CARE.
[2017-02-26 09:36] VITALS: BP 116/68
--- NOTE | 2017-02-26 09:40 | NUR ---
DR. FRANKEL WAS HERE MADE ROUNDS W/ OTHER MEDICAL STAFFS AND UPDATED PT. PLAN OF CARE.
--- NOTE | 2017-02-26 10:00 | NUR ---
PT. WILLING TO AMBULATE W/ P.T. W/ ASSIST IN [address] HOLDING HER BIBLE.LEILA. WELL.
[2017-02-26 16:57] VITALS: BP 103/72
--- NOTE | 2017-02-26 18:00 | NUR ---
PT. REFUSED TO EAT ALL MEALS ENCOURAGE TO EAT BUT PT. ALWAYS REFUSED BUT SHE DRINK ONLY BOOST .DR. SIM NOTIFIED AND MADE AWARE.NO ACUTE DISTERESS NOTED REFUSED CARE BUT ABLE TO AMBULATE IN THE BATHROOM AND VOIDING W/ ASSIST.NO ACUTE DISTRESS NOTED.
--- NOTE | 2017-02-26 20:05 | NUR ---
PATIENT AWAKE, ALERT, ORIENTED X1 IN BED. HOLDING A BIBLE. RESPIRATION EVEN AND UNLBORED, ON ROOM AIR. ONGOING O.9% NS AT 10 CC/HR INFUSING WELL AT THE RIGHT FOREARM. MILD GENERALIZED WEAKNESS NOTED. PATIENT HAS POOR APPETITE. VOIDING FREELY IN THE BATHROOM WITH ASSIST. AMBULATES WITH ASSIST. SKIN DRY AND INTACT. ON 5150 FOR GRAVELY DISABLED. WILL CONTINUE TO MONITOR.
[2017-02-26 21:51] VITALS: BP 107/70
[2017-02-27 05:38] VITALS: BP 108/72
--- NOTE | 2017-02-27 06:36 | NUR ---
PATIENT AWAKE IN BED. RESPIRATION EVEN AND UNLABORED, ON ROOM AIR. REFUSED IVF. IV SITE NO SIGN OF INFILTRATION. ASSISTED WITH NEEDS. SAFETY OBSERVED. PLACED CALL LIGHT WITHIN REACH AT ALL TIMES.
--- NOTE | 2017-02-27 07:50 | NUR ---
AWAKE,ALERT W/ PERIODS OF CONFUSION AND FORGETFULNESS,NOTED TALKATIVE THIS MORNING READING HER BIBLE FACING BACK AND FORT INSIDE HER ROOM AND GOING OUTSIDE IN [address].BUT PT. ABLE TO FOLLOW COMMAND TO GO BACK INSIDE HER ROOM AND TO HER BED.PT. REFUSED TO EAT BREAKFAST STIIL NEEDS TO ENCOURAGE TO EAT . REFUSED TO RECONNECT HER IV ACCESS. ABLE TO AMBULATE IN THE BATHROOM AND VOIDING WELL.NO ACUTE DISTRESS NOTED WILL CONT. PLAN OF CARE.
--- NOTE | 2017-02-27 08:00 | NUR ---
PT. AWAKE,ALERT TALKATIVE AT THIS TIME,READING BIBLE OUT LOUD,BUT ABLE TO FOLLOW SIMPLE COMMAND,REFUSED TO RE-CONNECT IV FLUIDS.BUT IV SITE INTACT AND PATENT.BREAKFAST SERVED BUT PT. REFUSED TO EAT BREAKFAST ALWAYS STATED I DONT WANT TO EAT . ENCOURAGE PT. TO EAT BUT SHE ALWAYS SAID I DONT WANT IT.OFFERED BREAKFAST TO EAT BUT STILL REFUSING IT.DENIES ANY PAIN. NO ACUTE DISTRESS NOTED. WILL CONT. PLAN OF CARE.
--- NOTE | 2017-02-27 08:55 | NUR ---
DR. MCCLOUD WAS HERE AND MADE ROUNDS W/ OTHER MEDICAL STAFF AND UPDATED PT. PLAN OF CARE.
[2017-02-27 09:06] VITALS: BP 110/79
[2017-02-27 12:26] VITALS: BP 109/76
--- NOTE | 2017-02-27 14:00 | NUR ---
PT. ASSISTED TO AMBULATE IN THE BATHROOM AND VOIDING WELL.
[2017-02-27 16:46] VITALS: BP 105/76
--- NOTE | 2017-02-27 18:01 | NUR ---
PHYSICAL THERAPY DAILY NOTES CO-SIGN All documentation done by the Lean Process Deployment Consultant for 02/26/17 has been reviewed. I agree with the documentation. Reviewed/Co-Signed by: Rupa Mathur DPT Documentation Done by: Asya Draper, [place] Patient alayna tx fairly, slowly progressng towards goal, demo fair gait alayna. Cont with PT POC as alayna/safe.
--- NOTE | 2017-02-27 18:10 | NUR ---
PT. SISTER HERE AT BEDSIDE AND ENCOURAGE PT. TO EAT AND SHE EAT 2 BITE OF HOT DOG AND FINISHED HER ICE CREAM. AND DRINK I/2 GLASS OF DIET LARES.PT. RESTING COMFORTABLY IN BED. NO ACUTE DISTRESS NOTED. STILL REFUSED TO RE- CONNECT HER IV ACCESS DR. CARDONA NOTIFIED AND MADE AWARE.
--- NOTE | 2017-02-27 18:16 | NUR ---
STILL AWAITING FOR PLACEMENT FOR PSYCH FACILITY STILL ON 5150 . WILL CONT. TO MONITOR PT. CLOSELY.NO ACUTE DISTRESS NOTED.CALL LIGHT W/ IN REACH.
[2017-02-27 20:56] VITALS: BP 133/80
[2017-02-28 05:55] VITALS: BP 115/76
--- NOTE | 2017-02-28 08:04 | NUR ---
AWAKE,ALERT AND CONFUSED AND FORGETFUL.ABLE TO FOLLOW COMMAND.PT. REFUSED TO EAT BREAKFAST ,STILL NEEDS TO ENCOURAGE TO EAT .ABLE TO AMBULATE IN THE BATHROOM AND VOIDING WELL.REQUIRES MOD. ASSIST. W/ ADL NEEDS. STILL ON 5150 AWAITING FOR PLACEMENT PSYCH. FACILITY.NO ACUTE DISTRESS NOTED. CALL LIGHT W/ IN REACH. WILL CONT. PLAN OF CARE.
--- NOTE | 2017-02-28 09:30 | NUR ---
DR. MCCLOUD WAS HERE W/ OTHER MEDICAL STAFF MADE ROUNDS AND UPDATED PT. PLAN OF CARE.
[2017-02-28 09:35] VITALS: BP 97/67
--- NOTE | 2017-02-28 11:00 | NUR ---
PT. ENCOURGAE TO DRINK BOOST AND PT. CONSUMED ALL OF IT.AND SHE PREFERS TO DRINK MORE WATER THAN TO EAT FOODS.NO PROBLEM TAKING ALL HER MAEDICATION BUT SHE ALWAYS REFUSED TO EAT FOODS. MADE AWARE.DR. CARDONA.
[2017-02-28 13:01] VITALS: BP 109/72
[2017-02-28 16:44] VITALS: BP 96/65
--- NOTE | 2017-02-28 18:00 | NUR ---
BED BATH GIVEN AND COMPLETE LINEN CHANGE. REFUSED DINNER BUT SHE DRINK BOOST FOR SUPPLEMENT.NO ACUTE DISTRESS NOTED.
--- NOTE | 2017-02-28 19:48 | NUR ---
AWAKE AND ALERT, ABLE TO STATE NAME WHEN ASKED, BUT NOT ANSWERING MOST QUESTIONS. READING BIBLE QUIETLY, BUT DAY SHIFT NURSE REPORTS PT TALKATIVE/SINGING AT TIMES. BREATHING EVEN AND UNLABORED ON ROOM AIR. MED SURG PT. IVF OF NS AT 10ML/HR. CALL LIGHT WITHIN EASY REACH. HOB ELEVATED 30 DEG.
[2017-02-28 21:08] VITALS: BP 103/67
--- NOTE | 2017-02-28 23:00 | NUR ---
EYES CLOSED, BREATHING EVEN AND UNLABORED ON ROOM AIR. HOB KEPT ELEVATED 30 DEG. CALL LIGHT WITHIN EASY REACH.
[2017-03-01 05:23] VITALS: BP 110/71
--- NOTE | 2017-03-01 06:53 | NUR ---
AWAKE AND ALERT, BREATHING EVEN AND UNLABORED. OFFERED FOOD, REFUSED. IVF OF NS AT 10ML/HR
--- NOTE | 2017-03-01 07:10 | NUR ---
EYES CLOSED, BREATHING EVEN AND UNLABORED. CALL LIGHT WITHIN EASY REACH. ENDORSED TO NURSE COLBY
--- NOTE | 2017-03-01 07:20 | NUR ---
AAO X2.PERSON AND PLACE.DENIES ANY PAIN/DISCOMFORT.LUNGS CLEAR.PT NON TELE.IVF NS GOING AT 10 ML/HR INFUSING WELL.CALL LIGHT WITHIN REACH.INSTRUCTED TO CALL FOR ANY PAIN/DISCOMFORT.WILL CONTINUE TO MONITOR PT.
--- NOTE | 2017-03-01 08:15 | NUR ---
AND MEDICINE TEAM AT BEDSIDE.INFORMED PT ABOUT THE PLAN OF CARE.STILL LOOKING FOR GERIATRIC PSYCHE FACILITY FOR PT.ALSO WANTED TO SEE PT.
[2017-03-01 10:08] VITALS: BP 110/68
--- NOTE | 2017-03-01 12:13 | NUR ---
Follow Up Nutrition Assessment Dx: Gravely Disabled, 5150 PMHx: Schizophrenia, HLD Labs: (02/23) BG 137, Phosphorous 5 H; (02/16) A1C 6 Meds: Colace, D50, humulin R, lactinex, NS IV, vitamin B12, vitamin D, zofran Current Diet Order: Regular, Boost Chocolate PO Intakes: (02/26) D: 100% (Fed by sister); (02/27) B: 10%, L: 0%, D: 10%; (02/28) B: 0% (Refused), L: 0% (Refused), D: 0% but drank 100% Boost; (03/01) B: 20% Weights: (02/17) 126 lb, 57 kg Skin: Intact. Brandon 19. Edema: None GI: Abd soft. Active bowel sounds. Last BM 02/26. Current Appetite: Fair to Poor (Fluctuates due to pt's mental condition - Refusing most meals) Problem with: N: None. V: None. D: None. C: None. Problems with: Chewing: Yes. Missing upper and lower teeth, dentures at home, does not fit well, does not use them. Per doctor's progress note 03/01, no acute events overnight, pt in bed holding on to the bible, does not want to talk during the encounter; Pt with metabolic encephalopathy secondary to UTI, 6-10 WBC with moderate bacteria, history of schizophrenia, meets 5150 criteria. Per Bed Huddle report, pending in-patient psych facility placement. Pt was seen sound asleep during RD visit. Breakfast tray seen at bedside, 30% consumed, Boost x1 at bedside 100% consumed. No sitter at bedside. Spoke with RN, reported pt refused to open her mouth when attempted to assist pt during breakfast this morning, however, pt likes to drink all Boost oral supplements. RD notified [facility] staff to make milkshakes together with Boost oral supplements for pt to aid in PO intakes and weight maintenance. Estimated Nutritional Needs Based on Actual BW 126 lb, 57 kg. Energy: 7665-1426 kcal/day (25-30 kcal/kg for Maintenance) Protein: 57-68 gm/day (1-1.2 gm/kg for Maintenance) Fluids: 0622-5002 ml/day (1ml/kcal for Maintenance) or per doctor Nutrition Diagnosis 1. Inadequate energy intake related to altered mental status as evidenced by pt refusing to eat x2 days -- *Resolved 2. Difficulty chewing related to missing dentition as evidenced by pt with no teeth, dentures do not fit well -- *Ongoing Intervention 1. Recommend Mechanical, Soft Chopped diet. No restrictions warranted due to poor PO intakes secondary to mental/psychological condition. 2. Recommend Boost Plus TID (Chocolate) (1080 kcal, 42 gm protein) with milkshakes to aid in fluctuating and poor PO intakes. 3. Consider D/C Humulin R. Pt is not diabetic, A1C 6%. Monitor/ Evaluate Previous Goal: PO intakes to meet >75% of estimated needs - Not met Goal: PO intakes with supplements to meet >75% of estimated needs Monitor: PO intakes, labs, GI function F/U in 7 days as LOW risk (03/08)
--- NOTE | 2017-03-01 13:29 | NUR ---
PT ATE 100% OF HER LUNCH.
[2017-03-01 14:29] VITALS: BP 88/68
--- NOTE | 2017-03-01 15:00 | NUR ---
ASSISTED PT TO THE RESTROOM.PT WAS ABLE TO URINATE A LARGE AMOUNT.
--- NOTE | 2017-03-01 15:35 | NUR ---
PHYSICAL THERAPY DAILY NOTES CO-SIGN All documentation done by the STUDENT Fiber Heel Piece Shaper for 03/01/17 has been reviewed. I agree with the documentation. I CONCUR W/SPTA NOTE; CONT PER TX PLAN Reviewed/Co-Signed by: Francheska Stanford V PT Documentation Done by: BOLA LEGGETT SPTA
[2017-03-01 17:18] VITALS: BP 108/79
--- NOTE | 2017-03-01 18:13 | NUR ---
NO SIGNIFICANT CHANGE NOTED.WILL ENDORSE TO NEXT HSIFT.
--- NOTE | 2017-03-01 20:00 | NUR ---
SHIFT REASSESSMENT DONE.PATIENT ALERT,ASKED QUESTIONS ON INITIAL NURSING ROUNDS BUT JUST IGNORED ME.WAS READING HER BIBLE AT THAT TIME.BREAHING EASY.BRP ASSIST REPORTED.NS AT 10 CC/ HOUR.IV SITE RFA SECURED.MEDSURG PATIENT.SKIN INTACT.CALL LIGHT IN REACH.
--- NOTE | 2017-03-01 21:25 | NUR ---
PM MEDS GIVEN,SWALLOWS WELL.NO INCIDENT.CALL LIGHT IN REACH.
[2017-03-01 21:37] VITALS: BP 103/65
--- NOTE | 2017-03-02 01:20 | NUR ---
PATIENT ASSISTED TO RESTROOM EARLIER,FALL PRECAUTION.NS AT 10 CC/ HOUR.IV SITE GOOD.HAD BM EARLIER.KEEP CLEAN AND DRY.CALL LIGHT IN REACH,BED ALARM ON.
[2017-03-02 05:48] VITALS: BP 91/57
--- NOTE | 2017-03-02 05:51 | NUR ---
I AND O MEASURED.NS AT 10 CC/ HOUR.IV SITE GOOD AND SECURED.WILL ENDORSE TO NEXT SHIFT.
--- NOTE | 2017-03-02 06:42 | NUR ---
WILL ENDORSE TO INCOMING SHIFT.
--- NOTE | 2017-03-02 07:20 | NUR ---
RESTING IN BED, AROUSABLE TO LIGHT TOUCH, QUIET AND CALM DEMEANOR AT THIS TIME, ABLE TO VERBALIZE NEEDS, SELECTIVE RESPONSE TO QUESTIONS, REORIENTED TO CURRENT SITUATION, CALL LIGHT AND ROOM, PT IS NEAR NURSING STATION, IV AT RFA INFUSING NS AT 10ML/HR, DENIES DISCOMFORT, WILL CONTINUE TO PROVIDE CARE.
--- NOTE | 2017-03-02 09:53 | NUR ---
ABLE AND WILLING TO TAKE ALL PO MEDS, ATE HALF BANANA AND ONE HARD BOIL EGG, DECLINED ALL OTHER FOOD ITEMS, WILL CONTINUE TO POSITIVELY ENCOURAGE PO INTAKE, CALL LIGHT BARBARA FORD.
[2017-03-02 10:10] VITALS: BP 92/62
--- NOTE | 2017-03-02 16:21 | NUR ---
P.T. NOTES/WEEKLY SUMMARY ATTEMPTED P.T. TX MULT TIMES, Pt KEPT EYES CLOSED, ABLE TO VERBALLY RESPOND, NURSE PRESENT, EDUC ON RISKS & BENEFITS OF OOB, Pt STILL DECLINED, Pt LAYING ON HER SIDE FACING THE WINDOW, FACING AWAY FROM DOOR, CALL [place], PHONE, TABLE IN REACH; BED ALARM ON; FOLLOW UP TOMORROW; CONT PT ONCE DAILY 5X/WK X 1 WK PER POC, EMPHASIS ON PROGRESSIVE STRENGTHENING PROGRAM, SAFE GAIT SEQUENCING, FALL PRE- VENTION TECH. PVE [id number] TUG SCORE:11 sec
--- NOTE | 2017-03-02 17:03 | NUR ---
SISTER JACINTO REQUESTING RE-EVAL FROM PSYCH TO REVIEW CURRENT MED REGIMEN, DR SIM MADE AWARE.
[2017-03-02 17:30] VITALS: BP 107/71
--- NOTE | 2017-03-02 18:57 | NUR ---
ALLOWED FOR BEDBATH, ABLE TO FEED SELF FOR DINNER, CALM AND COOPERATIVE AT THIS TIME, NO OTHER SIGNIFICANT CHANGES NOTED, CARE WILL BE ENDORSED TO NIGHT NURSE.
--- NOTE | 2017-03-02 20:00 | NUR ---
PT A/A/O X2. DENIES DIZZINESS AND HEADACHE. BREATH SOUNDS CLEAR. BREATHING EVEN AND UNLABORED ON ROOM AIR. DENIES CHEST PAIN AND PRESSURE. BOWEL SOUNDS ACTIVE. NO C/O N/V AND ABD PAIN. IV INTACT ON THE RIGHT FOREARM INFUSING WITH NS AT 10 ML/HR. MADE PT COMFORTABLE. PLACED CALL LIGHT WITH IN REACH. WILL CONTINUE TO MONITOR.
[2017-03-02 21:19] VITALS: BP 94/61
--- NOTE | 2017-03-03 00:56 | NUR ---
PT RESTING WITH EYES CLOSED. NO DISTRESS AND DISCOMFORT NOTED. WILL CONTINUE TO MONITOR.
[2017-03-03 05:20] VITALS: BP 95/61
--- NOTE | 2017-03-03 05:36 | NUR ---
PT RESTING WITH EYES CLOSED. EASILY AROUSABLE WITH VERBAL STIMULI. NO SIGNIFICANT CHANGES NOTED. IV INTACT AND INFUSING ORDERED. WILL ENDORSE TO THE AM NURSE ACCORDINGLY.
--- NOTE | 2017-03-03 07:54 | NUR ---
PT IS A+OX2, MEDSURG, PULSES MODERATE AND EQUAL EDVIN, NO EDEMA PRESENT, LUNG SOUNDS CLEAR, TOLERATING ROOM AIR, BOWEL SOUNDS ACTIVE, REFUSING TO EAT, VOIDING, GENERALIZED WEAKNESS, REQUIRES ASSISTANCE TO AMBULATE, SKIN INTACT, IV IN RFA WITH NS @ 10 ML/HR.
--- NOTE | 2017-03-03 09:49 | NUR ---
PT RESTING IN BED, NO RESPIRATORY DISTRESS NOTED, REFUSED ALL MEDS EXCEPT SEROQUEL AND TRICOR, DRANK SEVERAL SIPS OF BOOST, STATES SHE WOULD LIKE TO BE LEFT ALONE.
[2017-03-03 10:28] VITALS: BP 136/77
--- NOTE | 2017-03-03 10:48 | NUR ---
FAMILY AT BEDSIDE, PT TEARFUL, STATES SHE IS SCARED OF GOING TO PSYCH FACILITY, NO RESPIRATORY DISTRESS NOTED, DENIES PAIN.
--- NOTE | 2017-03-03 11:01 | NUR ---
PHYSICAL THERAPY IN ROOM TO WORK WITH PT.
--- NOTE | 2017-03-03 11:35 | NUR ---
PT UP IN CHAIR WITH PHYSICAL THERAPY, NO RESPIRATORY DISTRESS NOTED, FAMILY AT BEDSIDE.
--- NOTE | 2017-03-03 12:31 | NUR ---
PT SITTING IN CHAIR, FAMILY Attempting to feed PT, NO RESPIRATORY DISTRESS NOTED, DENIES PAIN.
--- NOTE | 2017-03-03 13:41 | NUR ---
PT RESTING IN BED, NO RESPIRATORY DISTRESS NOTED, DENIES PAIN, PER PHYSICAL THERAPY PT VOIDED ONCE, ORANGE URINE.
[2017-03-03 13:58] VITALS: BP 106/72
--- NOTE | 2017-03-03 14:10 | NUR ---
PT RESTING IN BED, NO RESPIRATORY DISTRESS NOTED, DENIES PAIN, TEARFUL BECAUSE FAMILY LEAVING.
--- NOTE | 2017-03-03 15:57 | NUR ---
PHYSICAL THERAPY DAILY NOTES CO-SIGN All documentation done by the Plastic [employer] Products Assembler/student for 03/03/17 has been reviewed. I agree with the documentation. Reviewed/Co-Signed by: Javid Feliz PT Documentation Done by:BOLA LEGGETT SPTA POC REVIEWED W/ INVESTMENT SALES ASSISTANT, SPTA; PROGRESSING W/ FUNC MOBILITY & GAIT ENDURANCE; PSYCHOSOCIAL ISSUE; FAMILY PRESENT DURING P.T. TX, FAMILY EDUC ON SAFE TASK SEQUENCING & HEP; WILL BENEFIT W/ P.T.
--- NOTE | 2017-03-03 16:01 | NUR ---
PT RESTING IN BED, NO RESPIRATORY DISTRESS NOTED, DENIES PAIN, STATES THAT SHE CAN HEAR GOD SPEAKING TO HER.
--- NOTE | 2017-03-03 16:47 | NUR ---
PT RESTING IN BED, NO RESPIRATORY DISTRESS NOTED, COMPLAINING OF ANXIETY AND NAUSEA, SITTING IN CHAIR AT BEDSIDE, INSTRUCTED TO USE CALL LIGHT TO CALL FOR HELP WHEN HE WANT TO GET BACK IN BED AND NOT TO GET UP BY HIMSELF.
--- NOTE | 2017-03-03 16:48 | NUR ---
PT RESTING IN BED, NO RESPIRATORY DISTRESS NOTED, REQUESTING ICE, DENIES PAIN.
[2017-03-03 17:06] VITALS: BP 112/72
--- NOTE | 2017-03-03 19:11 | NUR ---
PT RESTING IN BED, NO RESPIRATORY DISTRESS NOTED, DENIES PAIN.
--- NOTE | 2017-03-03 19:44 | NUR ---
RECEIVED PT FROM PREVIOUS SHIFT NURSE. PT AOX2. MED SURG PT. PULSES PRESENT, NO EDEMA NOTED. LUNG SOUNDS CLEAR, ON RA. DENIES SOB/DIFFICULTY BREATHING. BOWEL SOUNDS ACTIVE. VOIDED ONCE TODAY PER DAY NURSE. AMBULATORY WITH ASSITANCE. SKIN INTACT. IV IN RFA, INTACT AND PATENT. BED IN LOWEST POSITION. CALL LIGHT WITHIN REACH. WILL CONTINUE TO MONITOR.
[2017-03-03 21:56] VITALS: BP 109/71
--- NOTE | 2017-03-04 00:53 | NUR ---
PT RESTING IN BED. RR EVEN AND UNLABORED. NO ACUTE DISTRESS NOTED. CALL LIGHT WITHIN REACH. BED IN LOWEST POSITION. WILL CONTINUE TO MONITOR.
[2017-03-04 05:50] VITALS: BP 116/82
--- NOTE | 2017-03-04 07:20 | NUR ---
RECEIVED Pt. EYES CLOSED APPEARS TO BE SLEEPING, RESPIRATIONS EVEN AND UNLABORED. NO SIGNS OF PAIN/DISCOMFORT AT THIS TIME. IVF RUNNING TO IV AT RIGHT FOREARM PATENT AND INTACT. BED LOW/LOCKED. CALL LIGHT IN REACH. WILL CONTINUE TO MONITOR.
--- NOTE | 2017-03-04 08:29 | NUR ---
MADE ROUNDS WITH DR. WASSERMAN AND MEDICINE TEAM, STILL WAITING FOR PLACEMENT AND AGREED WITH PLAN OF CARE.
[2017-03-04 09:32] VITALS: BP 115/67
[2017-03-04 14:50] VITALS: BP 92/65
[2017-03-04 16:52] VITALS: BP 103/70
--- NOTE | 2017-03-04 17:35 | NUR ---
Pt. TOLERATED DIET WELL AND ATE WHOLE [employer] AND [employer]RIES FOR LUNCH AND DINNER PER Pt. REQUEST AND DENIES N/V.
--- NOTE | 2017-03-04 18:11 | NUR ---
Pt. AAOX2 EPISODES OF CONFUSION NOTED. RESPIRATIONS EVEN AND UNLABORED. DENIES PAIN/DISCOMFORT. NO DISTRESS NOTED. TOLERATED DIET WELL. IVF RUNNING TO IV AT RIGHT FOREARM PATENT AND INTACT. BED LOW/LOCKED. CALL LIGHT IN REACH.
--- NOTE | 2017-03-04 19:58 | NUR ---
PT CURRENTLY RESTING IN BED, NO ACUTE DISTRESS. A/O X3, FORGETUL AND CONFUSED AT TIMES. NO TELE, MED/SURG. DENIES CHEST PAIN. PULSES PALPABLE IN ALL EXTREMITIES, NO EDEMA NOTED. LUNG SOUNDS CTA BILATERALLY, NO RESPIRATORY DISTRESS NOTED. BOWEL SOUNDS ACTIVE, LAST BM 03/01/17. VOIDING WELL. GENERALIZED WEAKNESS NOTED. SKIN INTACT. DENIES PAIN AT THIS TIME. IV PATENT AND INTACT. BED IN LOWEST POSITION, SIDE RAILS UP X2, SCDS IN PLACE, CALL LIGHT WITHIN REACH. WILL CONTINUE TO MONITOR.
[2017-03-04 21:25] VITALS: BP 102/77
[2017-03-05 05:26] VITALS: BP 100/61
--- NOTE | 2017-03-05 07:25 | NUR ---
AAO X2.PERSON AND PLACE.DENIES ANY PAIN/DISCOMFORT.LUNGS CLEAR.NON-TELE.IVF NS GOING AT 10 ML/HR INFUSING WELL. BED ALARM ON FOR SAFETY.CALL LIGHT WITHIN REACH.INSTRUCTED TO CALL FOR ANY PAIN/DISCOMFORT.WILL CONTINUE TO MONITOR PT.
[2017-03-05 08:56] VITALS: BP 97/63
--- NOTE | 2017-03-05 14:00 | NUR ---
SISTER CALLED FINALLY CONVINCED PT TO EAT HER MASHED POTATO.ALSO GOT UP TO THE BATHROOM AND VOID.
--- NOTE | 2017-03-05 15:00 | NUR ---
PT DID NOT EAT WEEL AT LUNCH.ORDERED HER HAMBURGERS AND FRIES.ATE ALL OF IT.
[2017-03-05 16:45] VITALS: BP 107/74
--- NOTE | 2017-03-05 18:18 | NUR ---
PT ATE 100 % OF DINNER.TOLERATED IT WELL.NO SIGNIFICANT CHANGE NOTED.WILL ENDORSE TO NEXT SHIFT.
--- NOTE | 2017-03-05 20:43 | NUR ---
PT AWAKE VERBAL NO SUICIDAL IDEATION, SHE JUST FEELING SORRY COZ SHE LIED TO EVERYBODY, DENIES PAIN, STILL WITH POOR INTAKE, IVF NS INFUSING @ TKO RFA IV ACCESS PATENT NON INFIL, SCD'S FOR DVT PROPHYLAXIS, STILL NO BM X3 DAYS ON ROUTINE LAXATIVES, DR SIM MADE AWARE, SHIFT ASSESSMENT DONE, ATTENDED NEEDS CALL LIGHT AT REACH.
[2017-03-05 21:18] VITALS: BP 96/61
--- NOTE | 2017-03-06 02:34 | NUR ---
SLEEPING INTERMITTENT EASILY AROUSABLE, NO S/SX OF PAIN OR DISCOMFORTS NO DISTRESS, ENCOURAGED PT TO GO TO THE BATHROOM, STILL NO BM, CONT TO MONITOR.
[2017-03-06 05:32] VITALS: BP 101/64
--- NOTE | 2017-03-06 06:45 | NUR ---
ENCOURAGED PT TO GO TO THE BATHROOM DIDNT URINATE FOR 11 HRS, PT AGREES AND WENT, VOIDING FREELY DARK YELLOW COLORED URINE OUTPUT, NO BM, PT REFUSED AM CARE GROOMING EVEN CHANGING THE GOWN, JUST WANTED TO GO BACK TO BED, WILL ENDORSE TO INCOMING SHIFT FOR F/U CARE.
--- NOTE | 2017-03-06 07:15 | NUR ---
PT IN FOWLERS POSITION. PT IS VERBAL. PT VOICES CONCERNS FOR BM AND URINATING. PT STATES GOD DOES NOT ALLOW HER TO. APPEARS WITHDRAWN. IV SALINE LOCKED TO RFA. BED IN LOWEST POSITION, CALL LIGHT WITHIN REACH.
[2017-03-06 09:52] VITALS: BP 130/81
--- NOTE | 2017-03-06 12:50 | NUR ---
PASSED [employer] PT TOLERATED WELL. ASSISTED PT TO RESTROOM. PT AMBULATORY STEADY GAIT. PT VOIDED 800ML OF YELLOW URINE. PT REFUSES HYGIENE CARE. CALL LIGHT WITHIN REACH.
[2017-03-06 13:08] VITALS: BP 101/70
--- NOTE | 2017-03-06 14:12 | NUR ---
PT'S MOTHER AND DAUGHTER IN TO SEE PT. PT IS EATING NOW UPON ARRIVAL OF FAMILY MEMBERS AND DIET COKE. PT EATING MEAL. PT IS TALKING TO FAMILY MEMBERS AND INTERACTING. CALL LIGHT WITHIN REACH.
--- NOTE | 2017-03-06 14:52 | NUR ---
SISTER PROVIDING HAIR HYGIENE. PT TOLERATING WELL. PT REFUSES BODILY HYGIENE.
--- NOTE | 2017-03-06 16:55 | NUR ---
PT VOIDED ONCE AGAIN. WILLINGNESS TO VOID NOTICED.
[2017-03-06 17:38] VITALS: BP 116/73
--- NOTE | 2017-03-06 20:27 | NUR ---
PT COMFORTABLE COOPERATIVE AND CALM, NOT IN ANY DISTRESS, AMBULATING WITH MIN ASSIST, FOLLOWS SOME COMMANDS BUT MOST OF THE TIME PT ALWAYS ANSWERS "NO" NEEDS ENCOURAGEMENT, DENIES SUICIDAL IDEATION, STRESSED SAFETY PREC, BED ALARM ON, IV ACCESS @ RFA ON HEPLOCK, SCD'S FOR DVT PROPHYLAXIS, SKIN CDI, DENIES PAIN, SHIFT ASSESSMENT DONE NEEDS MET, CONT TO MONITOR.
[2017-03-06 21:11] VITALS: BP 98/68
--- NOTE | 2017-03-07 02:05 | NUR ---
PT ASLEEP NO S/SX OF PAIN NOR DISCOMFORTS NO DISTRESS LUNGS CTA, COOPERATIVE AT THIS TIME, STILL NO BM FOR 4 DAYS NOW ABD SOFT NON TENDER BS ACTIVE X4 QUADRANTS, NO N/V, DR SIM AWARE NNO AT THIS TIME,
[2017-03-07 05:39] VITALS: BP 109/81
--- NOTE | 2017-03-07 06:41 | NUR ---
SLEEPING INTERMITTENT DURING THE SHIFT NOT IN ANY DISTRESS, REFUSED TO GET UP ATTENDED NEEDS, CALL LIGHT AT REACH, CONT TO MONITOR.
--- NOTE | 2017-03-07 09:15 | NUR ---
PASSED MORNING MEDS. PT TOLERATES WELL. PT VOICES THAT SHE WILL AGREE TO CLEAN BODY TODAY. WILL CONTINUE TO MONITOR.
[2017-03-07 09:34] VITALS: BP 99/71
--- NOTE | 2017-03-07 13:30 | NUR ---
PT REFUSING TO EAT MEAL REQUESTED AT MOMENT. ALLOWED PT SOME TIME AND WILL TRY AT LATER TIME. CALL LIGHT WITHIN REACH.
--- NOTE | 2017-03-07 14:14 | NUR ---
PT VOIDED 700ML YELLOW URINE. WILL CONTINUE TO MONITOR.
--- NOTE | 2017-03-07 15:58 | NUR ---
PT ALLOWED BODY HYGIENE. COOPERATED FAIRLY WITH PROCEDURE. CLEANED ROOM SPACE AND PROVIDED CLEAN LINENS. PT REPORTS RELIEF FROM ACTIVITY. CALL LIGHT WITHIN REACH.
[2017-03-07 17:11] VITALS: BP 126/81
--- NOTE | 2017-03-07 18:58 | NUR ---
PT REJECTING DINER ([employer] HAMBURGER AND FRIES) PT REQUESTED TUNA SANDWICH, WHEN SANDWICH ARRIVED PT STATES WANTS ON WHEAT BREAD. WHEAT BREAD ARRIVED, PT DENIES THAT IS WHEAT BREAD, SISTER IS REACHED AND IS TRANFERRED ON PHONE TO TALK TO PT.
--- NOTE | 2017-03-07 19:59 | NUR ---
PT. AWAKE, ALERT, ORIENTED X4, DENIES HEADACHE OR DIZZINESS. ABLE TO FOLLOW COMMANDS. SPEECH CLEAR BUT SLOW TO ANSWER. PT. HAS FLAT AFFECT. BREATH SOUNDS CLEAR THROUGHOUT LUNG HO, RESP. EVEN, UNLABORED. NO SOB NOTED. DENIES CHESTPAIN OR DISCOMFORT. NO EDEMA NOTED TO EXTREMITIES. PEDAL PULSES MODERATE. ABD. SOFT AND FLAT. BOWEL SOUNDS ACTIVE. IVF NS AT 10CC/HR. BED LOW LAYING W/ ALARM ON, CALL LIGHT WITHIN REACH.
[2017-03-07 21:33] VITALS: BP 110/70
--- NOTE | 2017-03-08 02:43 | NUR ---
PT. RESTING QUIETLY, EYES CLOSED. APPEARS TO BE SLEEPING. CALL LIGHT WITHIN REACH.
[2017-03-08 05:16] VITALS: BP 99/63
--- NOTE | 2017-03-08 06:40 | NUR ---
PT. DOZING THIS MORNING. NO DISTRESS THROUGHOUT NIGHT. PT. ENCOURAGED THROUGHOUT NIGHT TO EAT. PT. REFUSED. NO BOWEL MOVEMENT NOTED FROM PT. IV SITE REMAINS INTACT. CALL LIGHT WITHIN REACH. WILL ENDORSE PT. CARE TO INCOMING NURSE.
[2017-03-08 09:16] VITALS: BP 104/73
--- NOTE | 2017-03-08 09:40 | NUR ---
PT ENCOURAGED TO EAT AND DRINK. PT TAKES MEDICATIONS WELL. PT STATES WILL NOT EAT AND WILL NOT COOPERATE WITH SELF HYGIENE. WILL KEEP ENCOURAGING PT TO EAT. CALL LIGHT WITHIN REACH.
--- NOTE | 2017-03-08 10:20 | NUR ---
PT HAS A CRYING EPISODE. PT REFUSES TO TALK TO FAMILY MEMBER. STATES SHE WANTS TO GO HOME TO FAMILY, BUT SHE DOES NOT WANT TO EAT.
[2017-03-08 12:15] VITALS: BP 115/78
--- NOTE | 2017-03-08 12:35 | NUR ---
PT ATE ONE BOWL OF MASHED POTATOES. ASKED FOR SECOND BOWL. SECOND BOWL PROVIDED. PT ATE ICE CREAM. FAMILY AT BEDSIDE. WILL CONTINUE TO MONITOR.
--- NOTE | 2017-03-08 13:15 | NUR ---
Follow Up Nutrition Assessment Dx: Gravely Disabled, 5150 PMHx: Schizophrenia, HLD Labs: (02/23) BG 137, Phosphorous 5 H; (02/16) A1C 6 - Noted no new labs available Meds: Colace, D50, humulin R, lactinex, NS IV, vitamin D, zofran Current Diet Order: Mechanical Soft, Chopped, Boost TID with milkshake PO Intakes: (03/05) B: 0%, D: 80%; (03/06) B: 0% (refused), L: 85%; (03/07) B: 0% (refused), L: 0% (refused), D: 0% (refused); (03/08) B: 0% (refused) Weights: (02/17) 126 lb, 57 kg; (03/01) 126 lb, 57 kg Skin: Intact. Brandon 18. Edema: None GI: Abd soft. Active bowel sounds. Last BM 03/01. Noted no BM x7 days, noted pt with poor PO intakes, refusing meals Current Appetite: Poor (Pt refusing most meals) Problem with: N: None. V: None. D: None. C: None. Problems with: Chewing: Yes. Missing upper and lower teeth, dentures at home, does not fit well, does not use them. Per doctor's progress note 03/08, pending psych facility transfer, no acute events overnight, no major complaints; Pt with metabolic encephalopathy secondary to UTI, 6-10 WBC with moderate bacteria, history of schizophrenia, meets 5150 criteria. Pt was seen resting in bed with sister and mother at bedside. Boost x2 unopened seen at bedside. Pt reported refusing to eat at this time. RD offered other food options, pt continues to refuse. Sister stated that pt likes mashed potatoes without gravy and hamburgers with no cheese. Pt also stated she likes wheat bread instead of white bread. Food preferences noted in chart. Per RN/MONUMENT SETTER, stated that pt had ice cream x2 cups and 10% of Boost this morning. RN stated that pt ate good on 03/06, however, ate nothing on 03/05, stated that pt thinks it is a sin to defecate if eating per Bible, still pending psych placement. Per nursing notes, pt is refusing to eat and refuses hygiene care Estimated Nutritional Needs Based on Actual BW 126 lb, 57 kg. Energy: 5222-5459 kcal/day (25-30 kcal/kg for Maintenance) Protein: 57-68 gm/day (1-1.2 gm/kg for Maintenance) Fluids: 6284-5922 ml/day (1ml/kcal for Maintenance) or per doctor Nutrition Diagnosis 1. Inadequate energy intake related to altered mental status as evidenced by pt refusing to eat x2 days -- *Ongoing 2. Difficulty chewing related to missing dentition as evidenced by pt with no teeth, dentures do not fit well -- *Ongoing Intervention 1. Continue Mechanical Soft, Chopped diet, Boost TID with milkshake per doctor. No restrictions warranted due to poor PO intakes/pt refusing meals secondary to mental/psychological condition. 2. Consider obtaining new weights. 3. If poor PO intakes continue <50%, consider alternative nutrition support (EN Support) to aid in pt receiving optimal nutritional needs. Monitor/ Evaluate Previous Goal: PO intakes with supplements to meet >75% of estimated needs - Not Met Goal: PO intakes with supplements to meet >50% of estimated needs Monitor: PO intakes, labs, GI function, weights F/U in 3-5 days as MODERATE risk (03/11-03/13)
--- NOTE | 2017-03-08 13:17 | NUR ---
1. Continue Mechanical Soft, Chopped diet, Boost TID with milkshake per doctor. No restrictions warranted due to poor PO intakes/pt refusing meals secondary to mental/psychological condition. 2. Consider obtaining new weights. 3. Consider appetite stimulant if appropriate. 4. If poor PO intakes continue <50%, consider alternative nutrition support (EN Support) to aid in pt receiving optimal nutritional needs.
[2017-03-08 16:41] VITALS: BP 99/69
--- NOTE | 2017-03-08 18:45 | NUR ---
PT PASSED STOOL TWICE TODAY. TUNA SANDWICH REQUESTED BY PT SELF. UPON ARRIVAL PT STATED WHEAT BREAD WAS NOT THE RIGHT ONE AND REFUSED TO EAT SANDWICH. ATE 2 ICE CREAM FOR DINER.
--- NOTE | 2017-03-08 20:11 | NUR ---
AWAKE AND ALERT, READING HER BIBLE. ANSWERED QUESTIONS WHEN ASKED. BREATHING EVEN AND UNLABORED ON ROOM AIR. BED IN LOWEST POSITION, UPPER SIDE RAILS KEPT RAISED, CALL LIGHT WITHIN EASY REACH. IVF OF NS AT 60ML/HR.
--- NOTE | 2017-03-08 20:48 | NUR ---
DRANK 1 CUP WATER, OFFERED ICE CREAM, PUDDING, SANDWICH. REFUSED. STATED "I HAD HARD TIME PASSING STOOL TODAY. I NEED TO DRINK MORE WATER". ENCOURAGED TO DRINK MORE WATER
[2017-03-08 21:10] VITALS: BP 115/73
--- NOTE | 2017-03-08 23:00 | NUR ---
AWAKE, READING HER BIBLE. BREATHING EVEN AND UNLABORED. CALL LIGHT WITHIN EASY REACH.
--- NOTE | 2017-03-09 04:02 | NUR ---
LATE ENTRY: 0100H - ASLEEP. BREATHING EVEN AND UNLABORED. CALL LIGHT WITHIN EASY REACH
[2017-03-09 05:44] VITALS: BP 98/62
--- NOTE | 2017-03-09 06:26 | NUR ---
EYES CLOSED, BREATHING EVEN AND UNLABORED. EASILY AWAKENED. IVF OF NS AT 60ML/HR. CALL LIGHT WITHIN EASY REACH.
--- NOTE | 2017-03-09 07:43 | NUR ---
PT RECEIVED DURING CHANGE OF SHIFT, A/OX2, WITHDRAWN, NO TELE, DENIES CHEST PAIN, PULSES PRESENT, DENIES SOB, LUNGS CTA, BREATHING EVEN AND UNLABORED, BOWEL SOUNDS ACTIVE, ABLE TO VOID, AMBULATORY WITH ASSIST, SKIN WARM DRY INTACT, DENIES ALL PAIN AT THIS TIME, NS TO RFA INFUSING AT 60ML/HR, CALL LIGHT WITHIN REACH, WILL CONTINUE TO MONITOR.
--- NOTE | 2017-03-09 08:07 | NUR ---
DR. FRANKEL AND RESIDENTS MAKING ROUNDS, PLAN OF CARE DISCUSSED.
[2017-03-09 09:10] VITALS: BP 105/65
--- NOTE | 2017-03-09 09:21 | NUR ---
PT REFUSED TO EAT BREAKFAST, BOOST LEFT AT BEDSIDE, DENIES SOB, DENIES PAIN, CALL LIGHT WITHIN REACH, WILL CONTINUE TO MONITOR.
--- NOTE | 2017-03-09 10:15 | NUR ---
PHYSICAL THERAPY AT BEDSIDE.
--- NOTE | 2017-03-09 11:12 | NUR ---
PT DENIES SOB, DENIES PAIN, BS 100 NO COVERAGE NEEDED, CALL LIGHT WITHIN REACH, WILL CONTINUE TO MONITOR.
--- NOTE | 2017-03-09 12:07 | NUR ---
PT DENIES SOB, DENIES PAIN, CALL LIGHT WITHIN REACH, WILL CONTINUE TO MONITOR.
--- NOTE | 2017-03-09 13:10 | NUR ---
PT REFUSED LUNCH TRAY AND REQUESTED "BURGER AND FRIES", CURRENTLY EATING, DENIES SOB, DENIES PAIN, CALL LIGHT WITHIN REACH, WILL CONTINUE TO MONITOR.
--- NOTE | 2017-03-09 14:09 | NUR ---
PT DENIES SOB, DENIES PAIN, STATED "I SHOULDN'T HAVE EATEN THAT HAMBURGER", DENIES N/V, CURRENTLY READY "THE BIBLE", CALL LIGHT WITHIN REACH, WILL CONTINUE TO MONITOR.
--- NOTE | 2017-03-09 15:13 | NUR ---
PT ASLEEP BUT AROUSABLE, NO INDICATION OF PAIN, BREATHING EVEN AND UNLABORED, CALL LIGHT WITHIN REACH, WILL CONTINUE TO MONITOR.
--- NOTE | 2017-03-09 15:48 | NUR ---
PHYSICAL THERAPY DAILY NOTES CO-SIGN All documentation done by the Imaging Nurse for 03/09/17 has been reviewed. I agree with the documentation. Reviewed/Co-Signed by: Jesenia Fu PT Documentation Done by: JUNO NOBLE ENGINE LATHE OPERATOR PT SHOWING STEADY GAINS [facility] GOALS
--- NOTE | 2017-03-09 16:16 | NUR ---
PT DENIES SOB, DENIES PAIN, BS 124 NO COVERAGE NEEDED, CALL LIGHT WITHIN REACH, WILL CONTINUE TO MONITOR.
[2017-03-09 16:57] VITALS: BP 104/68
--- NOTE | 2017-03-09 17:16 | NUR ---
PT ASLEEP BUT AROUSABLE, NO INDICATION OF PAIN, BREATHING EVEN AND UNLABORED, CALL LIGHT WITHIN REACH, WILL CONTINUE TO MONITOR.
--- NOTE | 2017-03-09 18:20 | NUR ---
PT DENIES SOB, DENIES PAIN, CALL LIGHT WITHIN REACH, WILL ENDORSE PT TO NEXT SHIFT.
--- NOTE | 2017-03-09 19:21 | NUR ---
AWAKE AND ALERT, READING THE BIBLE. WITHDRAWN. IV LEAKING TO RIGHT FOREARM. REMOVED, NEW IV INSERTED TO RIGHT FOREARM, 22 G. BREATHING EVEN AND UNLABORED ON ROOM AIR. HOB ELEVATED 30 DEG. IVF OF NS AT 60ML/HR.
--- NOTE | 2017-03-09 20:21 | NUR ---
ENCOURAGED TO EAT OR DRINK BOOST. REFUSED, BUT AGREED TO DRINK WATER. ENCOURAGED TO WALK, REFUSED, BUT AGREED TO SIT UP ON CHAIR. PT SITTING ON CHAIR AT THIS TIME.
--- NOTE | 2017-03-09 20:56 | NUR ---
PT GOT BACK TO BED BY SELF. STATED SHE FEELS COMFORTABLE AT THIS TIME. HOB ELEVATED 20 DEG. READING HER BIBLE.
[2017-03-09 20:59] VITALS: BP 127/62
--- NOTE | 2017-03-10 00:07 | NUR ---
EYES CLOSED, BREATHING EVEN AND UNLABORED. HOB KEPT ELEVATED 30 DEG. CALL LIGHT WITHIN EASY REACH.
--- NOTE | 2017-03-10 06:00 | NUR ---
BERTHA LINDA ASSISTED PT TO WALK TO RESTROOM.
[2017-03-10 06:06] VITALS: BP 113/76
--- NOTE | 2017-03-10 06:40 | NUR ---
AWAKE AND ALERT, READING HER BIBLE. BREATHING EVEN AND UNLABORED. IVF OF NS AT 60ML/HR.
--- NOTE | 2017-03-10 07:30 | NUR ---
RECEIVED PT IN BED A/A/OX2 SLOW TO ANSWER WITH SOFT SPEECH. PT ABLE TO FOLLOW COMMANDS AND MAKE NEED KNOWN. PT NOTED WITH FLAT AFFECT AND WITHDRAWN, COOPERATIVE AT THIS TIME. RESP EVEN AND UNLABORED WITH CLEAR BS BILAT. DENIES ANY SOB/CP/PRESSURE AT THIS TIME. NO EDEMA NOTED. IVF TO RFA NS AT 60ML/HR. ABD SOFT, NONTENDER WITH ACTIVE BS X4. DENIES ANY N/V AT THIS TIME. VOIDING FREELY UP TO BR WITH ASSIST AND SUPERVISION. 5150 FOR GRAVELY DISABLED, HX SCHYZO. CALL LIGHT IN REACH WITH FREQUENT VISUAL CHECKS FOR SAFETY. BED ALARM IN PLACE.
[2017-03-10 08:43] VITALS: BP 111/74
--- NOTE | 2017-03-10 09:00 | NUR ---
PT'S SISTER AND MOTHER AT BEDSIDE. UPDATED ON PT'S CONDITION OVERNIGHT. SISTER WAS ABLE TO FEED PT SERVIGN OF EGGS AND PT DRANK 2 ORANGE JUICES WITH MEDS AND MEAL. DR. HOLGUIN ALSO SPOKE WITH FAMILY AND UPDATED THEM ON POC. WILL CONT TO MONITOR.
--- NOTE | 2017-03-10 11:50 | NUR ---
PT ASSISTED TO BR BY PT.
[2017-03-10 12:01] VITALS: BP 110/79
--- NOTE | 2017-03-10 13:40 | NUR ---
PT ATE HAMBURGER AND SOME FRIES AND DRANK LARGE CUP OF WATER ABOUT 20OZ. WILL CONT TO MONITOR.
--- NOTE | 2017-03-10 15:38 | NUR ---
PHYSICAL THERAPY DAILY NOTES CO-SIGN All documentation done by the STUDENT Business Services Coordinator for 03/10/17 has been reviewed. I agree with the documentation. I CONCUR W/SPTA NOTE; CONT PER TX PLAN Reviewed/Co-Signed by: Francheska Stanford V PT Documentation Done by: BOLA LEGGETT SPTA
[2017-03-10 17:22] VITALS: BP 109/78
--- NOTE | 2017-03-10 18:40 | NUR ---
PT REFUSED DINNER REQUESTED VANILLA ICESCREAM AND ORDERED. PT ATTEMPTED TO GO TO BR 3X AND VOIDED 2X. HAD 2 PARTIAL MEALS AND DRANK WATER. AMBULATED WITH PT AND SAT FOR 2HRS ON CHAIR. FAMILY VISITED AND PT WAS OVERALL PLESANT THROUGHT THE SHIFT. CALL LIGHT IN REACH NEEDS ATTENDED TO.
--- NOTE | 2017-03-10 19:20 | NUR ---
REC'D PT FROM DAY NURSE. PT RESTING IN BED. AAOX2. SPEECH CLEAR, FOLLOWS COMMANDS, APPREHENSIVE. REORIENTED TO TIME AND AGE. NO SIGNS OF DISTRESS NOTED. BREATHING EVEN/UNLABORED ON RA. MED SURG PT. NO TELE. DENIES CP, DIZZINESS, OR PALPIATIONS. NO EDEMA NOTED. DENIES ABD PAIN, TENDERNESS, OR N/V. VOIDING FREELY. ENCOURAGED TO VOID BUT PT DOES NOT WANT TO VOID AT THIS TIME. AMBULATORY. SKIN INTACT. CALL LIGHT WITHIN REACH, BED AT LOWEST POSITION. WILL CONTINUE TO MONITOR.
--- NOTE | 2017-03-10 20:10 | NUR ---
SPOKE TO JACNITO, PT'S SISTER. UPDATE GIVEN REGARDING PT. JACINTO INFORMED ME PT BELIVES VOIDING IS A SIN. ENCOURAGED PT TO VOID BUT DOES NOT WANT TO AT THIS TIME. WILL TRY TO GET PT TO EAT AND VOID BEFORE SLEEPING.
--- NOTE | 2017-03-10 20:20 | NUR ---
ASSISTED PT TO VOID. CHANGED GOWN. MADE COMFORTABLE IN BED. PT DIAPHORETIC. BS 95, CHOCOLATE PUDDING GIVEN. WILL CONTINUE TO MONITOR.
[2017-03-10 21:29] VITALS: BP 129/84
--- NOTE | 2017-03-11 01:12 | NUR ---
PT RESTING IN BED WITH EYES CLOSED. SUPINE IN LOW FOWLERS POSITION. NO SIGNS OF DISTRESS NOTED. BREATHING EVEN/UNLABORED ON RA. CALL LIGHT WITHIN REACH, BED AT LOWEST POSITION. WILL CONTINUE TO MONITOR.
--- NOTE | 2017-03-11 05:39 | NUR ---
PT RESTING IN BED. AAOX2, SPEECH CLEAR. REORIENTED TO AGE AND TIME. RESTED THROUGHOUT THE NIGHT. BS 105, NO COVERAGE. ENCOURAGED TO VOID. PT STATED SHE DID NOT NEED TO AND WOULD LIKE TO GO BACK TO SLEEP. NO SIGNIFICANT CHANGES DURING SHIFT. CALL LIGHT WITHIN REACH, BED AT LOWEST POSITION, BED ALARM ON. WILL ENDORSE TO DAY NURSE.
[2017-03-11 05:58] VITALS: BP 111/68
--- NOTE | 2017-03-11 06:32 | NUR ---
ENCOURAGED PT TO GET OUT OF BED AND VOID. PT REFUSED AND STATED SHE IS STILL SLEEPY.
--- NOTE | 2017-03-11 07:15 | NUR ---
RECEIVED PT. IN BED AWAKE, ALERT X2. NO SOB, NO N/V NOTED. DENIES ANY PAIN AT THIS TIME. PT. SEEMS NOT TO WANT TO ENGAGE IN COMMUNICATION MUCH. NS RUNNING AT 60 CC/HR. VIA IV H/L AT R FA. SCD TO BLE MAINTAINED. BED IN LOW POS., CALL LIGHT WITHIN REACH. SIDE RAILS UP X3.
--- NOTE | 2017-03-11 08:15 | NUR ---
EXPLAINED TO PT. THE IMPORTANCE OF INCREASING PO INTAKE. PT. STATED " NO, I'M NOT HUNGRY. I DON'T WANT TO EAT ANYTHING."
[2017-03-11 08:46] VITALS: BP 102/61
[2017-03-11 12:45] VITALS: BP 100/70
--- NOTE | 2017-03-11 16:20 | NUR ---
REMAINS IN STABLE CONDITION AT THIS TIME. NO ACUTE DISTRESS NOTED. PT. WAS ASSISTED TO AMBULATE IN HALLWAY X1 TODAY.
[2017-03-11 17:13] VITALS: BP 127/84
--- NOTE | 2017-03-11 19:10 | NUR ---
REC'D PT FROM DAY NURSE. PT RESTING IN BED. AAOX2, SPEECH CLEAR, FOLLOWS COMMANDS. ORIENTED TO SELF AND PLACE. WHEN ASKED WHY SHE IS IN THE HOSPITAL, PT STATED BC SHE "WALKED AWAY FROM GOD." REORIENTED TO AGE, TIME, AND SITUATION. NO SIGNS OF DISTRESS NOTED. BREATHING EVEN/UNLABORED ON RA. MED SURG PT. NO TELE. DENIES CP, DIZZINESS, OR PALPITATIONS. NO EDEMA NOTED. DENIES ABD PAIN, TENDERNESS, OR N/V. POOR APPETITE. VOIDING BUT STATED "IT IS A SIN TO PEE." EDUCATED PT REGARDING IMPORTANCE OF EMPTYING BLADDER. INFORMED HER I WILL TRY TO GET HER UP TO VOID BEFORE SHE SLEEPS. ENCOURAGED TO VOID NOW BUT PT UNWILLING AND SAID SHE "DOES NOT WANT TO PEE" AND WANTS "TO GO TO BED." GENERALIZED WEAKNESS, BRP WITH ASSIST. SKIN INTACT. DENIES PAIN OR DISCOMFORT AT THIS TIME. IV TO RFA PATENT AND INFUSING, SITE WNL. CALL LIGHT WITHIN REACH, BED AT LOWEST POSITION, BED ALARM ON. WILL CONTINUE TO MONITOR.
--- NOTE | 2017-03-11 19:57 | NUR ---
REC'D CALLED FROM JACINTO, PT'S SISTER. UPDATE GIVEN ON LORIE. LORIE SPOKE TO JACINTO ON THE PHONE FOR A FEW MINUTES. AFTER SPEAKING TO JACINTO, I ASSISTED LORIE TO VOID THEN MADE COMFORTABLE IN BED. WILL CONTINUE TO MONITOR.
--- NOTE | 2017-03-11 20:57 | NUR ---
DUE MEDS GIVEN. ENCOURAGED PT TO EAT A SNACK BEFORE SLEEP BUT REFUSED. TRIED TO FEED PUDDING, BOOST, AND JUICE BUT TURNED HEAD AWAY AND DENIED ALL. CALL LIGHT WITHIN REACH, BED AT LOWEST POSITION, BED ALARM ON. WILL CONTINUE TO MONITOR.
[2017-03-11 21:19] VITALS: BP 138/86
--- NOTE | 2017-03-12 02:04 | NUR ---
PT RESTING IN BED WITH EYES CLOSED. NO SIGNS OF DISTRESS NOTED. BREATHING EVEN/UNLABORED ON RA. CALL LIGHT WITHIN REACH, BED AT LOWEST POSITION. WILL CONTINUE TO MONITOR.
[2017-03-12 04:48] VITALS: BP 124/83
--- NOTE | 2017-03-12 05:40 | NUR ---
PT RESTING IN BED. NO COMPLAINTS AT THIS TIME. DENIES PAIN OR DISCOMFORT. REORIENTED TO AGE, TIME, AND SITUATION. BS 74, NO COVERAGE. ENCOURAGED TO GET UP AND VOID. PT REFUSES AT THIS TIME. NO SIGNIFICANT CHANGES DURING SHIFT. CALL LIGHT WITHIN REACH, BED AT LOWEST POSITION, BED ALARM ON. WILL ENDORSE TO DAY NURSE.
--- NOTE | 2017-03-12 07:20 | NUR ---
RECEIVED Pt. AAOX2 RESPIRATIONS EVEN AND UNLABORED, NO DISTRESS NOTED. DENIES PAIN/DISCOMFORT. IVF RUNNING TO IV AT RIGHT FOREARM PATENT AND INTACT. BED LOW/LOCKED. CALL LIGHT IN REACH.
--- NOTE | 2017-03-12 08:50 | NUR ---
MADE ROUNDS WITH DR. FRANKEL AND MEDICINE TEAM, Pt. POSSIBLE DISCHARGE TODAY WITH FAMILY AND AGREED WITH PLAN OF CARE.
[2017-03-12 08:54] VITALS: BP 124/76
--- NOTE | 2017-03-12 11:45 | NUR ---
Pt. VOIDED X 1 900 ML PRANAV URINE, Pt. ALSO C/O PAIN DURING URINATION ASSISTED WITH PERICARE. DR. HOLGUIN MADE AWARE.
[2017-03-12 11:48] VITALS: Ht 152.4 cm; Wt 57.0 kg
[2017-03-12 13:01] VITALS: BP 121/75
--- NOTE | 2017-03-12 15:32 | NUR ---
SPOKE WITH Pt. MOTHER TIAGO BAINS AND SISTER GORAN HORNE VIA PHONE AND VERIFIED CONSENT FOR SURGICAL DEBRIDEMENT BILATERAL TOENAILS CONSENT VERIFIED WITH BHANU TOBIN.
--- NOTE | 2017-03-12 16:19 | NUR ---
PHYSICAL THERAPY DAILY NOTES CO-SIGN All documentation done by the Ctrs/student for 03/12/17 has been reviewed. I agree with the documentation. Reviewed/Co-Signed by: Javid Feliz PT Documentation Done by:BOLA LEGGETT SPTA POC REVIEWED W/ CLOTHES IRONER, SPTA; PROGRESSING W/ FUNC MOB; EMPHASIS ON SAFE TASK SEQUENCING & FALL PREVENTION.
--- NOTE | 2017-03-12 16:41 | NUR ---
Follow-up Nutrition Assessment Dx:Gravely disabled/5150 Labs: None recorded or received on 03/12 Meds: Coalce, Humulin, NS IV, Vitamin D, Zofran Diet: Regular mechanical soft-chopped with Boost TID and milkshakes PO intake: (03/11) D:50% (03/12)B:50% Weights: (02/17) 126#, (03/01) 126# (03/12) 121# Pt with 5# wt loss in the past 10 days due to poor PO intake. Skin: intact Edema: None Last BM: 03/08 Per progress note 03/12, pt pending transfer to psych facility unless she is able to perform ADL's on her own. If able, she may be discharged home to family. Pt was able to eat because her sister encouraged her and fed her her meal. She was with an improved affect and states she was happy today after she walked around the floor. Patient was reminded to shower and eat and then she started to have a burdick look on her face. Pt's Abilify and Ritalin was increased to 10mg. Per bed huddle this morning, pt's family does not want to take care of pt. If pt is at her baseline she can discharge. During visit observed pt laying in bed. Obtained food preferences from pt and she is requesting chocolate milkshakes. Pt did eat 100% of her hamburger. Estimated Nutritional Needs unchanged from prior assessment:Actual body weight 57kg Energy: 1425-1710kcal/day (25-30kcal/kg for maintenance) Protein: 57-68g/day (1-1.2g/kg for maintenance) Fluid: 1425-1710ml/day (1ml/kcal for maintenance) or per doctor Nutrition Diagnosis 1. Inadequate energy intake related to altered mental status as evidenced by pt refusing to eat x 2days (ongoing) 2. Difficulty chewing related to missing dentition as evidenced by pt with no teeth, dentures do not fit well (ongoing) Intervention 1. Continue mechanical soft chopped diet, Boost TID with milkshakes per doctor. No restrictions warrented due to poor PO intakes/pt refsuing meals secondary to mental/psychological condition. 2. If PO intake continues <50%, consider alternative nutrition support (EN support) to aid in pt receiving optimal nutritional needs. Monitor/Evaluate Previous goal: PO intakes with supplement to meet >50% est needs ( met) Goal: PO intake at least 75% of estimated needs Monitor: PO intake, Labs, GI function, wts F/U in 2-3 days as high risk :03/14-
[2017-03-12 17:02] VITALS: BP 129/87
[2017-03-12 17:39] LABS: UA SPECIFIC GRAVITY 1.025 (1.005-1.035); microscopic required? YES; urine erythrocyte NEGATIVE (NEGATIVE)
--- NOTE | 2017-03-12 18:50 | NUR ---
Pt. AAOX3 RESPIRATIONS EVEN AND UNLABORED DENIES PAIN/DISCOMFORT AT THIS TIME. NO DISTRESS NOTED. IVF RUNNING TO IV AT RIGHT FOREARM PATENT AND INTACT. TOLERATED DIET WELL ATE FRIES FOR DINNER. ASSISTED TO BATHROOM NEEDED. BED LOW/LOCKED. BED ALARM ON AND CALL LIGHT IN REACH.
--- NOTE | 2017-03-12 19:35 | NUR ---
PT A/O X2. MED-SURG, NO TELE, DENIES CHEST PAIN. PULSES PALPABLE, NO EDEMA OBSERVED. LUNG SOUNDS CTA, BREATHING FREELY ON RA, DENIES SOB. ABD SOFT AND NONDISTENDED, HYPOACTIVE BOWEL SOUNDS. PT HAS POOR APPETITE. VOIDS ADEQUATELY. GENERALIZED WEAKNESS; BRP WITH ASSIST. SKIN IS INTACT. DENIES PAIN AT THIS TIME. IVF INFUSING TO RFA, NS @ 60 ML/HR. BED IN LOWEST SETTING, SIDE RAILS UP X2, BED ALARM ON, CALL LIGHT WITHIN REACH. WILL CONTINUE TO MONITOR.
[2017-03-12 21:38] VITALS: BP 124/77
--- NOTE | 2017-03-12 22:55 | NUR ---
PT REFUSED ACCU-CHEK AT THIS TIME. DR GALLARDO AWARE. EDUCATED PT ON THE IMPORTANCE OF HAVING HER BS CHECKED, PT STATES, "I DON'T WANT TO." ENCOURAGED PT TO EAT A BEDTIME SNACK, PT REFUSED. PT ALSO STATES, "GOD TOLD ME NOT TO PEE." WILL CONTINUE TO MONITOR.
--- NOTE | 2017-03-13 02:10 | NUR ---
PT AWAKE AT THIS TIME, REQUESTED TO CALL FAMILY. PT ON PHONE WITH FAMILY. RECEIVED CALL FROM PT'S SISTER, JACINTO. PT'S SISTER EXPRESSED CONCERN THAT PT HAS PAIN TO BILATERAL TOES. PT REPORTS PAIN GREATER THAN 5/10. PT REFUSES TYLENOL, STATES "TYLENOL DOESN'T WORK, IT KEEPS ME AWAKE." DR PIERCE MADE AWARE. AWAITING NEW ORDERS AT THIS TIME.
--- NOTE | 2017-03-13 03:04 | NUR ---
PT COMPLAINING OF BILATERAL TOE PAIN. ADMINISTERED IBUPROFEN ORDERED. WILL MONITOR FOR PAIN RELIEF.
[2017-03-13 06:20] VITALS: BP 115/65
--- NOTE | 2017-03-13 07:15 | NUR ---
RECEIVED Pt. AAOX3 RESPIRATIONS EVEN AND UNLABORED RA. DENIES PAIN/DISCOMFORT AT THIS TIME. NO DISTRESS NOTED. IVF RUNNIUNG TO IV AT RIGHT FOREARM PATENT AND INTACT. BED LOW/LOCKED. CALL LIGHT IN REACH.
--- NOTE | 2017-03-13 07:20 | NUR ---
PT RESTING IN BED, BREATHING EVEN AND UNLABORED, NO ACUTE DISTRESS OBSERVED. IVF INFUSING WELL. CARE ENDORSED TO AM NURSE.
--- NOTE | 2017-03-13 08:30 | NUR ---
REPORTED UA RESULT TO DR. NGUYEN AWAITING ORDERS.
--- NOTE | 2017-03-13 09:12 | NUR ---
Pt. C/O PAIN AT BILATERAL TOENAILS POST SURGICAL DEBRIDEMENT 03/12/17, OFFERED TYLENOL Pt. REFUSED AND REQUESTING FOR JOLYNN, DR. NGUYEN NOTIFIED.
[2017-03-13 09:21] VITALS: BP 113/81
[2017-03-13 12:41] VITALS: BP 98/65
[2017-03-13 17:05] VITALS: BP 105/62
--- NOTE | 2017-03-13 18:41 | NUR ---
Pt. AAOX3 RESPIRATIONS EVEN AND UNLABORED RA. DENIES PAIN/DISCOMFORT AT THIS TIME. NO DISTRESS NOTED. IVF RUNNING TO IV AT RIGHT FOREARM PATENT AND INTACT. BED LOW/LOCKED. CALL LIGHT IN REACH.
--- NOTE | 2017-03-13 20:11 | NUR ---
PATIENT'S PLAN OF CARE WAS DISCUSSED AND REVIEWED WITH INSTRUCTIONAL SYSTEMS DESIGNER: PETEY BARCLAY
--- NOTE | 2017-03-13 20:19 | NUR ---
RECEIVED PT IN BED AAOX1 , LUNG SOUNDS CTA , ABD SOFT BS ATIVE X4, 22G INSERTED TO RIGHT HAND PT TOLERATED . CALL LGITH WITHIN PT'S REACH WILL CON'T TO MONITOR PT CLOSELY.
[2017-03-13 21:50] VITALS: BP 110/51
--- NOTE | 2017-03-14 03:21 | NUR ---
PT'S IN BED WITH EYES CLOSED , PIV INTACT INFUSING WELL .
[2017-03-14 05:37] VITALS: BP 127/79
--- NOTE | 2017-03-14 05:43 | NUR ---
I HAVE REVIEWED THE DATA COLLECTION BY TONY (NAME): PETEY BARCLAY ENTERED ON (DATE/TIME): 03/13/17 I CONCUR WITH THE DATA AND ANY EXCEPTIONS OR COMMENTS ARE LISTED BELOW:
--- NOTE | 2017-03-14 06:20 | NUR ---
PT REFUSED TO GO TO THE BATHROOM ,NO URINE OUTPUT NOTED FROM 1900, PIV INTACT INFUSING WELL .
--- NOTE | 2017-03-14 07:50 | NUR ---
RECEIVED PT IN BED ALERT AND ORIENTED TO PERSON AND PLACE ONLY. DENIES ANY PAIN OR DISCOMFROT. DENIES ANY GI UPSET. AMBULATORY WITH ASSISTANCE. VOIDS FREELY. INSTRUCTED TO USE CALL LIGHT WHEN IN NEED OF ANY ASSISTANCE.
[2017-03-14 10:00] VITALS: BP 128/83
[2017-03-14 17:43] VITALS: BP 140/88
--- NOTE | 2017-03-14 20:17 | NUR ---
RECEIVED PT IN BED AAOX2 , PT DENY PAIN AT THE MOMENT , LUNG SOUNDS CTA, ABD SOFT BS ACTIVE X4, PIV TO LEFT ARM INTACT INFUSING WELL , BED ALARM ON FOR SAFTY , WILL CON'T TO MONITOR AND ASSIST PT WITH CARE.
--- NOTE | 2017-03-14 20:36 | NUR ---
PATIENT'S PLAN OF CARE WAS DISCUSSED AND REVIEWED WITH ELECTRON BEAM PHOTO MASK TECHNICIAN: PETEY BARCLAY
[2017-03-14 21:53] VITALS: BP 138/77
--- NOTE | 2017-03-15 05:42 | NUR ---
I HAVE REVIEWED THE DATA COLLECTION BY TONY (NAME): PETEY BARCLAY ENTERED ON (DATE/TIME): 03/14/17 I CONCUR WITH THE DATA AND ANY EXCEPTIONS OR COMMENTS ARE LISTED BELOW:
--- NOTE | 2017-03-15 06:11 | NUR ---
NO CHANGES OF CONDITION NOTED, ALL DUE MEDS GIVEN NO REACTION NOTED, PIV INTACT INFUSING WELL .
[2017-03-15 07:06] VITALS: BP 109/60
--- NOTE | 2017-03-15 08:23 | NUR ---
RECIEVED PATIENT ALERT AND TEARFUL AT THIS TIME. SHE IS REFUSING TO EAT AND WANTS TO WAIT FOR THE FAMILY TO ARRIVE. PATIENT HAS DIMINSIHED BREATH SOUNDS AND SOME TRACE EDEMA TO THE LOWER EXTREMITES. PATIENT IS EMOTIONAL AT THIS TIME. VITALS AT [facility] TIME AT97.5, 83, 18, 109/80, 95% ON ROOM AIR.PATIENT WITH LAST BLOOD SUGAR AT 96. PATIEN WITH CHEST XRAY THAT IS NEGATIVE AND PATIENT HAS A HX OF PREVIOUS LUCUNAR INFARCT BUT NOTHING NEW NOTEDD. PATIENT HAS NO STENOSIS TO THE LEGS AND NO INDICATION OF DVT. PATIENT HAS BEEN ON A REGULAR DIET BUT NEEDS MUCH ENCOURAGEMENT TO EAT ADN TO TALKE MEDICATION IDNICATED. PATIENT HAS HISTORY OF REFUSAL TO EAT AND HAS BEEN WITH FAILURE TO THRIVE AND IS GRAVELY DISABLED ACCORDING TO HISTORY. PATIENT HAS BEEN UP TOP THE RESTROOM WITH ASSIT. LAST BM WA ON THE FOURTH OF THIS [facility]. DELORES THAS AN ALLERGY TO HALDOL.
--- NOTE | 2017-03-15 09:16 | NUR ---
SEEN BY DR FRANKEL AND STAFF AND PLAN OF CARE DISCUSSED.
[2017-03-15 09:44] VITALS: BP 122/82
--- NOTE | 2017-03-15 10:26 | NUR ---
OFFERED MEDICATION SND DIET AGAIN AND AGIN SHE REFUSD.
--- NOTE | 2017-03-15 11:09 | NUR ---
*P.T. NOTES* PATIENT WAS APPROACHED FOR TX SESSION AND ENCOURAGED TO PARTICIPATE IN GAIT TRANINING AND THERAPUTIC EXERCISE. PATIENT ADAMANTLY REFUSED TREATMENT SESSION; FIRST ATTEMPT AT 0945, SECOND ATTEMPT AT 1105. PATIENT IS EXPECTING FAMILY TO VISIT TODAY, AND SAYS SHE IS WAITING FOR THEM TO SHOW UP BEFORE SHE WILL PARTICIPATE. DURING FIRST ATTEMPT SHE STATED THAT "HE'S TRYING TO KILL ME WITH PACE TRAY" AND "I CAN'T LEAVE MY ROOM BECAUSE HE'S GONNA KILL MY DAD". UPON APPROACHING THE ROOM TO INDRODUCE MYSELF DURING THE SECOND ATTEMPT, PATIENT WAS OBSERVED SPEAKING TO HERSELF, SHE SAID "THEY ARE TRYING TO GET US" AND THEN RESPONDED " WE WON'T LET THEM GET US" RN NOTIFIED OF EVENTS. RN STATED THAT PATIENT IS REFUSING MEDICATION AND NUTRITION AT THIS TIME.
--- NOTE | 2017-03-15 11:10 | NUR ---
PATIENT REFUSED THE MEDICATIONS AGAIN WHEN OFFERED. SHE IS DETERMINED NOT TO TAKE HER MEDICATIONS OR FOOD TILL FAMILY ARRIVES.
[2017-03-15 14:31] VITALS: BP 139/52; BP 139/83
--- NOTE | 2017-03-15 14:44 | NUR ---
PATIENT SISTER CALLED MENDOZA ADVISED HER THAT THE PATIENT DOES NOT WANT TO TAKE MEDICATION OR TO EAT. SHE GAVE INSTRUCTIONS TO ASK THE PATIENT TO HAVE GOD FORGIVE HER FOR TAKIGN HER MEDIADIONS AND BASICALLY WANTS STAFF TO PLAY ALONG WITH HER DELUSION. SHE HAS BEEN INSISTANT THAT SHE WILL NOT EAT OR TAKE MEDICATIONS TILL THE FAMILY ARRIVES. SHE HAD REFUSED THE BLOOD SUGAR DRAW WELL. FAMILY STATES THEY WILL BE IN TO SEE HER TODAY. IN THE MEANTIME THE MEDICATION AND DIET HAS NOT BEEN RECEIVED BY THE PATIENT.
--- NOTE | 2017-03-15 15:23 | NUR ---
Follow-up Nutrition Assessment Dx:Gravely disabled, 5150 Labs: No new labs since 03/12. Tarce leukocytes to urine Meds: Carafate, Colace, Humulin, Lactinex, NS IV, Vit D, Zofran Diet: Regular Mechanical soft with Boost TID with milkshakes PO intake:(03/13) B:20% L;15% Weights: (02/07) 126# (03/01)126# (03/12)121# (03/15) 128.1. Wt discrepency possibly due to blankets and equipment on bed. Skin: intact Edema: trace to lower extremeties Last BM: 03/08 Per bed huddle this morning, pt is still awaiting placement and is pending a medical re-evaluation per Dr. Johnston. During visit, observed pt laying in bed with no family at bedside. Tried to obtain pt's food preferences and pt did not have any and lunch was untouched. Per RN, pt continues with poor appetite. Estimated Nutritional Needs unchanged from prior assessment:Actual body weight 57kg Energy: 1425-1710kcal/day (25-30kcal/kg for maintenance) Protein: 57-68g/day (1-1.2g/kg for maintenance) Fluid: 1425-1710ml/day (1ml/kcal) or per doctor Nutrition Diagnosis 1. Inadequate energy intake related to altered mental status as evidenced by pt refusing to eat x 2 days (ongoing) 2. Difficulty chewing related to missing dentition as evidenced by pt with no teeth, dentures do not fit well (ongoing) Intervention 1. Recommend continue with mechanical soft diet, Boost TID with milkshakes per doctor. No restrictions warrented due to poor PO intakes/pt refusing meals secondary to mental/pshychological condition. Monitor/Evaluate Previous goal: PO intake at least 50% of estimated needs (not met) Goal: PO intake at least 75% of estimated needs Monitor: PO intake, Labs, GI function F/U in 2-3 days as high risk:03/17-
--- NOTE | 2017-03-15 16:26 | NUR ---
PHYSICAL THERAPY DAILY NOTES CO-SIGN All documentation done by the Wrapper Opener for 03/15/17 has been reviewed. I agree with the documentation. Reviewed/Co-Signed by: Javid Feliz PT Documentation Done by:JUNO NOBLE MACHINE FUR CLEANER POC REVIEWED W/ MACHINE FUR CLEANER, NEEDS TO BE MOTIVATED TO PARTICIPATE W/ P.T. AT THIS TIME.
--- NOTE | 2017-03-15 16:30 | NUR ---
PATIENT SISTER AND MOTHER ARRIVED AND PATIENT HESITANTLY AGREED AND STATES GOD DID NOT WANT HER TO TAKE THE MEDICATIONS. GAVE ALL ORDERED AND WILL BE GIVING THE RITALIN ALSO INDICATED. WHILE FAMILY IS HERE WILL TAKE ADVANTAGE THE PATIENT HAS NOT COMPLIED WITH THE STAFF GIVING THE MEDICATIONS.
[2017-03-15 17:35] VITALS: BP 119/85
--- NOTE | 2017-03-15 20:00 | NUR ---
RECEIVED PT IN BED AWAKE ALERT AND ORIENTED X3. PT IS FORGETFUL AT TIMES. PULSES PALPABLE. NO EDEMA NOTED. LUNGS CLEAR AND BOWEL SOUNDS PRESENT. SKIN INTACT. NO C/O PAIN NOTED AT THIS TIME. IV TO THE RA INFUSING WELL WITH NO INFILTRATION NOTED. SEE GLAZIER ARTIST FOR FURTHER DETAILS. INSTRUCTED PT TO USE CALL LIGHT IF NEEDS ASSISTANCE WITH ANYTHING. CALL LIGHT IN REACH. WILL MONITOR.
--- NOTE | 2017-03-15 21:30 | NUR ---
PT SISTER GARY CALLED AND PT SPOKE TO HER SISTER AT THIS TIME, PT STATES THAT GOD TALKS TO HER, PT DOES NOT HEAR ANY VOICES TELLING HER TO HURT HERSELF. WILL CLOSELY MONITOR PT.
[2017-03-15 21:44] VITALS: BP 136/78
--- NOTE | 2017-03-16 | NUR ---
PT RESTING AT THIS TIME WITH NO DISTRESS NOTED. RESPIRATIONS EVEN AND UNLABORED. IV INFUSING WELL. WILL MONITOR.
--- NOTE | 2017-03-16 03:30 | NUR ---
NO CHANGES NOTED AT THIS TIME, WILL MONITOR.
--- NOTE | 2017-03-16 05:10 | NUR ---
PT CONTINUES TO REST IN BED AT THIS TIME, IV INFUSING WELL. NO DISTRESS NOTED. PT HAS NO COMPLAINTS AT THIS TIME. PT IS STABLE AND WILL ENDORSE TO THE A.M SHIFT NURSE.
[2017-03-16 05:38] VITALS: BP 133/79
--- NOTE | 2017-03-16 07:50 | NUR ---
RC'D PT RESTING IN BED WITH NO APPARENT SIGNS OF DISTRESS. PT IS A/A/O/X4, SPEECH CLEAR AND APPROPRIATE. DENIES CHEST PAIN/PRESSURE. PALP PULSES, NO EDEMA NOTED. RESPIRATIONS EQUAL AND UNLABORED BILAT. LUNGS CTA. ABDOMEN SOFT AND NONTENDER. DENIES N/V. PER REPORT PT HAS NOT PEED AND LANTIG[place] NOT WANT TO PEE. PT STATES "IM RELEASING KRISH WHEN I PEE". GENERALIZED WEAKNESS. SKIN W/D/I. DENIES PAIN AT THIS TIME. PT IS ANXIOUS IN BED. BED IN LOW POSITION. EDUCATED ON USING CALL LIGHT WHEN NEEDING ASSISTANCE. CALL LIGHT IN REACH. WILL CONTINUE TO MONITOR.
[2017-03-16 08:12] VITALS: BP 123/80
--- NOTE | 2017-03-16 11:59 | NUR ---
P.T. NOTE Pt WAS CLEARED FOR P.T. TREATMENT SESSION BY RN. Pt WAS SEEN SITTING UP IN BED READING HER PERSONAL BIBLE, SITTER/CELLOPHANE CASTING MACHINE REPAIRER PRESENT AT FOOT OF BED. AFTER INTRODUCTION OF REHAB STAFF, Pt WAS ENCOURAGED TO PARTICIPATE IN TX SESSION, GAIT TRAINING AND THERAPUTIC EXERCISE. Pt REFUSED TREATMENT SESSION STATING SEVERAL TIMES, "I JUST WANT TO STAY HERE AND READ MY BIBLE" " LEAVE ME ALONE, I'M READING MY BIBLE", AND " I DON'T WANT TO WALK, I WANT TO READ MY BIBLE". Pt WAS THEN ENCOURAGED TO PARTICIPATE IN THERAeX IN SITTING AT EOB OR IN LONGSITTING, Pt REFUSED. Pt ALSO REFUESED ATTEMPTS AT TOILETING ASSISTANCE. TIME: (1150) CLINICAL INSTRUCTOR PRESENT DURING ENCOUNTER. RN NOTIFIED. DISCUSSED WITH PT. PVE1
[2017-03-16 16:45] VITALS: BP 147/90
[2017-03-16] MEDS ORDERED: EFF37 PO (16:59)
[2017-03-16] MEDS ORDERED: RIT5 PO (17:00)
[2017-03-16 17:07] VITALS: BP 147/90
--- NOTE | 2017-03-16 20:06 | NUR ---
DR. MAE AWARE OF PT DC'D HOME WITHOUT URINATING. PT STATES "I DONT WANT TO PEE, ITS BAD AND RELEASING KRISH". PT'S SISTER JACINTO PROVIDED WITH DC HOME INSTRUCTIONS OVER PHONE. GIVEN MEDICATION EDUCATION. MADE AWARE OF PRESCRIPTIONS HAVE BEEN SENT TO PT'S SELECTED PHARMACY. MADE AWARE OF FOLLOW UP APPT. INSTRUCTED ON IMPORTANCE OF FOLLOWING MEDICATIONS ORDERED. MADE AWARE OF WORSENING SIGNS AND SYMPTOMS TO RETURN TO PCP OR ED. PT'S FAMILY VERBALIZED UNDERSTANDING OF INSTRUCTIONS. IV DC'D CATHETER INTACT, PT TOLERATED WELL. PT TRANSPORTED [facility]IA [facility] TO [facility] WITH ALL PERSONAL BELONGINGS IN HAND BY [facility].
== END 2017-03-16 20:42 | DRG 463 ==
LOC: ED 11:39 → DU 18:13 → MU 02-22 12:39
PROVIDERS: Emergency Medicine; Family Medicine; ADMIT Family Medicine
PROC: 0HBRXZZ Excision of Toe Nail, External Approach (ICD-10-PCS; principal; 2017-03-13)
PROC: 0HBRXZZ Excision of Toe Nail, External Approach (ICD-10-PCS; 2017-03-13)
PROC: 0HBRXZZ Excision of Toe Nail, External Approach (ICD-10-PCS; 2017-03-13)
PROC: 0HBRXZZ Excision of Toe Nail, External Approach (ICD-10-PCS; 2017-03-13)
PROC: 0HBRXZZ Excision of Toe Nail, External Approach (ICD-10-PCS; 2017-03-13)
PROC: 0HBRXZZ Excision of Toe Nail, External Approach (ICD-10-PCS; 2017-03-13)
PROC: 0HBRXZZ Excision of Toe Nail, External Approach (ICD-10-PCS; 2017-03-13)
PROC: 0HBRXZZ Excision of Toe Nail, External Approach (ICD-10-PCS; 2017-03-13)
PROC: 0HBRXZZ Excision of Toe Nail, External Approach (ICD-10-PCS; 2017-03-13)
PROC: 0HBRXZZ Excision of Toe Nail, External Approach (ICD-10-PCS; 2017-03-13)
DX: N39.0 Urinary tract infection, site not specified (principal); G93.41 Metabolic encephalopathy; E83.42 Hypomagnesemia; E87.8 Other disorders of electrolyte and fluid balance, not elsewhere classified; F20.9 Schizophrenia, unspecified; E78.5 Hyperlipidemia, unspecified; Z68.24 Body mass index [BMI] 24.0-24.9, adult; Z88.8 Allergy status to other drugs, medicaments and biological substances; I10 Essential (primary) hypertension; R73.03 Prediabetes; L60.2 Onychogryphosis; Z86.73 Personal history of transient ischemic attack (TIA), and cerebral infarction without residual deficits; D64.9 Anemia, unspecified
CPT/HCPCS: 82962; 83880; 97110-GP; 97116-GP; 97530-GP; G0480; J0696; J2270; J2405; J3475; J7030; Q0092

== ENCOUNTER 2019-01-16 15:06 | Emergency (ER) | payer OTHER ==
[~2019-01-16] VITALS: Ht 157.5 cm; Wt 59.1 kg
[~2019-01-16 15:06] MED LIST: CARAFATE1 GM PO; EFF37 PO; FENOFIBRATE MI134 MG PO; PRAVASTATIN SOD10 M1 PO; RESTORIL15 MG; RIT5 PO; SEROQUEL25 MG PO; SEROQUEL300 MG PO
[2019-01-16 15:34] VITALS: Ht 157.5 cm; Wt 59.1 kg
[2019-01-16 17:19] VITALS: BP 117/69
== END 2019-01-16 17:42 | disposition home or self-care (01) ==
LOC: ED 15:06
DX: R13.10 Dysphagia, unspecified (principal); E78.00 Pure hypercholesterolemia, unspecified; Z88.8 Allergy status to other drugs, medicaments and biological substances

== ENCOUNTER 2019-10-04 07:42 | Emergency (ER) | payer OTHER ==
[~2019-10-04] VITALS: Ht 165.1 cm; Wt 50.8 kg
[2019-10-04 07:46] VITALS: Ht 165.1 cm; Wt 50.8 kg
[2019-10-04 08:11] LABS: BASOPHIL % 0.2 % (0-2); PLATELET COUNT 214 x10^3mcL (130-400)
[2019-10-04 08:31] LABS: CALCIUM 9.3 mg/dL (8.5-10.1); CARBON DIOXIDE 24.2 mmol/L (21-32); CHLORIDE SERUM 106 mmol/L (98-107); CREATININE SERUM 0.8 mg/dL (0.6-1.0); GFR1 > 60 mL/min; GLUCOSE SERUM 95 mg/dL (74-106); POTASSIUM SERUM 3.4 mmol/L (3.5-5.1); SODIUM SERUM 142 mmol/L (136-145)
[2019-10-04 08:36] LABS: ALBUMIN 3.3 g/dL (3.4-5.0); ALKALINE PHOSPHATASE 77 U/L (46-116); ALT/SGPT 21 U/L (14-59); AST/SGOT 16 U/L (15-37); BILIRUBIN TOTAL 0.4 mg/dL (0.20-1.00); TOTAL PROTEIN, SERUM 6.5 g/dL (6.4-8.2)
[2019-10-04 09:00] LABS: RED CELL DISTRIBUTION WIDTH 14.6 % (11.5-14.5)
[2019-10-04 09:45] VITALS: BP 129/82
== END 2019-10-04 09:45 | disposition home or self-care (01) ==
LOC: ED 07:42
PROVIDERS: Emergency Medicine
DX: F45.8 Other somatoform disorders (principal); E78.00 Pure hypercholesterolemia, unspecified; Z88.8 Allergy status to other drugs, medicaments and biological substances
CPT/HCPCS: 36415; G0480